=== PATIENT | male | born 1975 | race Caucasian/White ===

== ENCOUNTER → 2016-04-08 | Outpatient (CLI) | payer BC ==
[~2016-04-08] MED LIST: /ESOM40CA PO; ABIL15TA PO; ASPI325T OR; ASPI81TA4 PO; ATEN25TA OR; BENI20TA11; BENZ0.5T OR; BENZ0.5T PO; BENZ5TA PO; BUDE3CAP PO; DIOV320T PO; DULO20CA OR; METO50TA4 PO; NEUR100C OR; NITR4TASL SL; OMEP20TA7 OR; PANT40TA2 PO; PERC7.5T8 OR; PERCOCET PO; REME30TA OR; ROPI0.25 PO; SPIR25TA2 PO; TORS20TA2 PO; TRIC145T19 OR; VARE1TA OR; ZOCO40TA OR; [UNRECOGNIZED DRUG - OTHER] OR; plavix OR
--- NOTE | 2016-04-08 23:00 | REP ---
Clinical: Left hip mass. Technique: Real time castillo scale and color evaluation using linear high frequency transducer. Findings: Directed ultrasound examination overlying the area of maximal erythema and mass effect at the left hip demonstrates subcutaneous edema and small irregular avascular fluid collection measuring 18 x 4 x 12 mm. Impression: Subcutaneous edema with small irregular focal fluid collection which is otherwise nonspecific. Differential diagnosis may include phlegmon/forming abscess and small hematoma. Signed by Devang Meeks MD 04/08/2016 10:52 P
== END ==
LOC: M RAD 15:48
PROVIDERS: ATTEND Physician Assistant
DX: R60.0 Localized edema (principal)

== ENCOUNTER → 2016-04-26 | Outpatient (CLI) | payer BC ==
[2016-04-26 12:46] LABS: BASO % 0.3 % (0.0-1.0); EOS # 0.1 K/mm3 (0.0-0.50); EOS % 1.7 % (0.0-3.0); LARGE UNSTAINED CELL # 0.1 K/mm3 (0.0-0.4); LARGE UNSTAINED CELL % 1.7 % (0.0-4.0); LYMPH # 1.6 K/mm3 (1.5-4.5); LYMPH % 23.4 % (24.0-44.0); MEAN CORPUSCULAR HEMOGLOBIN 28.7 pg (27.0-33.0); MEAN CORPUSCULAR HGB CONC 33.1 g/dl (32.0-36.5); MEAN CORPUSCULAR VOLUME 86.5 fl (80.0-96.0); MONO # 0.4 K/mm3 (0.0-0.8); MONO % 6.5 % (0.0-5.0); NEUTROPHILS # 4.5 K/mm3 (1.8-7.7); NEUTROPHILS % 66.5 % (36.0-66.0); PLATELET COUNT, AUTOMATED 200 k/mm3 (150-450); RED CELL DISTRIBUTION WIDTH 13.7 % (11.5-14.5); WHITE BLOOD COUNT 6.7 K/mm3 (4.0-10.0)
== END ==
LOC: M LAB 12:01
PROVIDERS: ATTEND Internal Medicine
DX: K52.9 Noninfective gastroenteritis and colitis, unspecified (principal); R93.8 Abnormal findings on diagnostic imaging of other specified body structures

== ENCOUNTER → 2016-04-27 | Outpatient (REF) | payer BC | LOC: M LAB REF 15:28 | PROVIDERS: ATTEND Internal Medicine | DX: K52.9 Noninfective gastroenteritis and colitis, unspecified (principal); R93.8 Abnormal findings on diagnostic imaging of other specified body structures ==

== ENCOUNTER → 2016-07-12 | Outpatient (REF) | payer BC | LOC: M LAB REF 16:13 | PROVIDERS: ATTEND Internal Medicine | DX: R19.7 Diarrhea, unspecified (principal) ==

== ENCOUNTER → 2016-08-04 | Outpatient (CLI) | payer BC ==
[~2016-08-04] MED LIST changes: +ISOVUE-370 76% 100ML VIAL (Q9967) As Ordered ONE
--- NOTE | 2016-08-04 20:10 | REP ---
CT angiogram chest, 08/04/2016. Comparison CT 05/10/2014, CT angio chest 01/12/2014 Clinical history: Status post ascending aortic aneurysm repair. Please reassess. Helical scanning through the chest with bolus of 75 ml as of Isovue 370 and both coronal and sagittal thick slab MIP reformatting performed. The lung delgado show some underlying interstitial fibrotic changes and minor dependent atelectasis without effusion or acute infiltrate. Some subpleural fat noted bilaterally, but mild. No nodule, mass or acute infiltrate. Heart size borderline. There is no specific chamber enlargement, pericardial thickening or effusion. The main, right and left pulmonary arteries and the lobar arteries are without filling defects. The ascending aorta shows maximum AP diameter of 3.5 cm. The intramural hematoma seen on the 05/10/2014 study is entirely resolved, the lumen widely patent with no dissection. Preoperatively the aneurysm measured 5 cm in this region. At the arch there is a transverse diameter of 3.6 cm currently, which on the previous CT in this same level measured 3.1 cm. The posterior arch and descending aorta are normal. There is no stenosis. No pathologic sized mediastinal or hilar adenopathy. No axillary or supraclavicular masses. Sternotomy wires and healed sternotomy noted. Medial clavicles, ribs, scapulae and vertebral bodies grossly intact. In the upper abdomen, no visible hepatosplenomegaly, focal hepatic or splenic lesion nor intrahepatic biliary dilatation, calcified gallstone. There may be a few small stromal stones in the gallbladder. Pancreas intact. Adrenal glands normal. Upper poles kidneys without acute finding. The upper abdominal aorta is normal. Stomach with small hiatal hernia. No other findings upper abdomen. Impression: 1. Status post ascending thoracic aortic aneurysm repair with the maximum AP diameter of the ascending aorta 3.5 cm and at the anterior arch 3.6 cm, which is increased from 3.1 cm on 05/10/2014. The ascending aorta is without dissection and shows no luminal stenosis. The previous intramural hematoma on the May 2014 exam is resolved. No other new or significant findings. No central or lobar pulmonary artery thrombi. Signed by Carter Francis MD 08/04/2016 08:42 P
== END ==
LOC: M RAD 07:46
PROVIDERS: ATTEND Internal Medicine Interventional Cardiology
DX: I71.2 Thoracic aortic aneurysm, without rupture (principal)
CPT/HCPCS: 71275; Q9967

== ENCOUNTER → 2016-09-10 | Outpatient (REF) | payer BC ==
[~2016-09-10] MED LIST changes: -ISOVUE-370 76% 100ML VIAL (Q9967) As Ordered ONE
== END ==
LOC: M LAB REF 09:40
PROVIDERS: ATTEND Internal Medicine
DX: R19.7 Diarrhea, unspecified (principal)

== ENCOUNTER 2016-10-10 23:39 | Emergency (ER) | payer BC ==
[~2016-10-10] VITALS: Ht 182.9 cm; Wt 154.8 kg
[2016-10-11] MEDS ORDERED: VITA-110 PO (00:13)
[2016-10-11] MEDS ORDERED: RIBO100C PO (00:13)
[2016-10-11] MEDS ORDERED: LATU40TA (00:13)
[2016-10-11] MEDS ORDERED: FAMO1TAB11 (00:13)
[2016-10-11] MEDS ORDERED: MAGN1TAB25 PO (00:13)
[2016-10-11] MEDS ORDERED: ZONI100C2 (00:13)
[2016-10-11] MEDS ORDERED: IBUP-1022 PO (00:13)
[2016-10-11] MEDS ORDERED: LOSA25TA8 (00:13)
[2016-10-11] MEDS ORDERED: FLOM5CAP (00:13)
[2016-10-11] MEDS ORDERED: ZOLO50TA PO (00:13)
[2016-10-11] MEDS ORDERED: ROPI1TAB (00:13)
[2016-10-11] MEDS ORDERED: VERA40TA (00:13)
[2016-10-11] MEDS ORDERED: REQU1TAB16 PO (00:13)
[2016-10-11] MEDS ORDERED: BENA25TA10 PO (00:13)
[2016-10-11] MEDS ORDERED: METO1TAB7 (00:13)
[2016-10-11] MEDS ORDERED: BOTO10VL IM ×2 (00:13→18:44)
[2016-10-11] MEDS ORDERED: LEVO137T2 (00:13)
[2016-10-11] MEDS ORDERED: HYDR200T3 (00:13)
[2016-10-11] MEDS ORDERED: TRAZ50TA11 (00:13)
[2016-10-11] MEDS ORDERED: FURO20TA2 PO ×2 (00:13→18:49)
[2016-10-11] MEDS ORDERED: PANT40TA2 (00:13)
[2016-10-11] MEDS ORDERED: dexameTHASONE 20 MG/5 ML VIAL (J1100) IV ONE (01:15)
[2016-10-11] MEDS ORDERED: KETOROLAC 30 MG/ML VIAL (J1885) IV ONE (01:15)
[2016-10-11] MEDS ORDERED: METOCLOPRAMIDE INJ 10MG/2ML VIAL (J2765) IV ONE (01:15)
[2016-10-11] MEDS ORDERED: diphenhydrAMINE INJ 50MG/ML VIAL (J1200) IV STA (02:13)
[2016-10-11] MEDS ORDERED: HYDROmorphone HCL 1 MG/ML SYRINGE (J1170) IV ONE ×2 (02:15→03:00)
[2016-10-11 03:06] VITALS: BP 154/94
[2016-10-11] MEDS ORDERED: FAMO1TAB11 PO (18:44)
[2016-10-11] MEDS ORDERED: METO1TAB7 PO (18:44)
[2016-10-11] MEDS ORDERED: ZOCO40TA PO (18:44)
[2016-10-11] MEDS ORDERED: ROPI1TAB PO ×2 (18:49→18:50)
[2016-10-11] MEDS ORDERED: K-TA10TA2 PO (18:49)
[2016-10-11] MEDS ORDERED: TRAZ50TA11 PO (18:49)
[2016-10-11] MEDS ORDERED: TRAM50TA2 PO (18:49)
[2016-10-11] MEDS ORDERED: BUTA-198 PO (18:49)
[2016-10-11] MEDS ORDERED: PRED5TA PO (18:49)
[2016-10-11] MEDS ORDERED: VERA40TA PO (18:49)
[2016-10-11] MEDS ORDERED: PROT1TAB2 PO (18:49)
[2016-10-11] MEDS ORDERED: ASPI1TAB PO (18:49)
[2016-10-11] MEDS ORDERED: SYNT137T7 PO (18:49)
[2016-10-11] MEDS ORDERED: LATU40TA PO (18:49)
[2016-10-11] MEDS ORDERED: ZONI100C2 PO (18:49)
[2016-10-11] MEDS ORDERED: SERT50TA PO (18:49)
[2016-10-11] MEDS ORDERED: HYDR200T3 PO (18:49)
[2016-10-11] MEDS ORDERED: LOSA25TA8 PO (18:49)
[2016-10-11] MEDS ORDERED: MAG400TA PO (18:50)
[2016-10-11] MEDS ORDERED: VITA-122 PO (18:50)
== END 2016-10-11 03:21 | disposition home or self-care (01) ==
LOC: M ED 23:39
DX: G43.709 Chronic migraine without aura, not intractable, without status migrainosus (principal); I10 Essential (primary) hypertension; E78.4 Other hyperlipidemia; F32.9 Major depressive disorder, single episode, unspecified
CPT/HCPCS: 85652; 96374; 96375; 96376; 99283; J1100; J1170; J1200; J1885; J2765

== ENCOUNTER 2016-10-11 13:25 | Inpatient (IN) | payer BC ==
[~2016-10-11] VITALS: Ht 182.9 cm; Wt 154.5 kg
[~2016-10-11 13:25] MED LIST changes: +BENA25TA10 PO; +BOTO10VL IM; +FAMO1TAB11; +FLOM5CAP; +FURO20TA2 PO; +HYDR200T3; +HYDROXYCHLOROQUINE 200 MG TAB PO SCH; +IBUP-1022 PO; +LATU40TA; +LEVO137T2; +LOSA25TA8; +LURASIDONE HCL 40 MG TAB (LATUDA) PO SCH; +MAGN1TAB25 PO; +METO1TAB7; +METOPROLOL SUCC (TopROL XL) 50MG **XL** TAB PO SCH; +PANT40TA2; +PANTOPRAZOLE 40MG TAB (PROTONIX) PO SCH; +REQU1TAB16 PO; +RIBO100C PO; +ROPI1TAB; +TRAZ50TA11; +VERA40TA; +VITA-110 PO; +ZOLO50TA PO; +ZONI100C2
[2016-10-11] MEDS ORDERED: methylPREDNISolone INJ 125 MG/2 ML VIAL (J2930) IV ONE (14:45)
[2016-10-11] MEDS ORDERED: TRIMETHOBENZAMIDE HCL INJ 200 MG/2 ML VIAL (J3250) IM ONE (14:45)
[2016-10-11] MEDS ORDERED: NS 1,000 ML IV ONE (14:45)
[2016-10-11] MEDS ORDERED: diphenhydrAMINE INJ 50MG/ML VIAL (J1200) IV ONE (14:45)
[2016-10-11] MEDS ORDERED: KETOROLAC 30 MG/ML VIAL (J1885) IV ONE (14:45)
[2016-10-11] MEDS ORDERED: MORPHINE 4 MG/ML 1ML SYRINGE IV ONE (16:15)
[2016-10-11] MEDS ORDERED: METO1TAB7 PO (18:44)
[2016-10-11] MEDS ORDERED: ZOCO40TA PO (18:44)
[2016-10-11] MEDS ORDERED: FAMO1TAB11 PO (18:44)
[2016-10-11] MEDS ORDERED: BOTO10VL IM (18:44)
[2016-10-11] MEDS ORDERED: BUTA-198 PO (18:49)
[2016-10-11] MEDS ORDERED: LOSA25TA8 PO (18:49)
[2016-10-11] MEDS ORDERED: K-TA10TA2 PO (18:49)
[2016-10-11] MEDS ORDERED: ASPI1TAB PO (18:49)
[2016-10-11] MEDS ORDERED: SYNT137T7 PO (18:49)
[2016-10-11] MEDS ORDERED: ZONI100C2 PO (18:49)
[2016-10-11] MEDS ORDERED: VERA40TA PO (18:49)
[2016-10-11] MEDS ORDERED: PRED5TA PO (18:49)
[2016-10-11] MEDS ORDERED: PROT1TAB2 PO (18:49)
[2016-10-11] MEDS ORDERED: TRAM50TA2 PO (18:49)
[2016-10-11] MEDS ORDERED: LATU40TA PO (18:49)
[2016-10-11] MEDS ORDERED: ROPI1TAB PO ×2 (18:49→18:50)
[2016-10-11] MEDS ORDERED: SERT50TA PO (18:49)
[2016-10-11] MEDS ORDERED: HYDR200T3 PO (18:49)
[2016-10-11] MEDS ORDERED: FURO20TA2 PO (18:49)
[2016-10-11] MEDS ORDERED: TRAZ50TA11 PO (18:49)
[2016-10-11] MEDS ORDERED: VITA-122 PO (18:50)
[2016-10-11] MEDS ORDERED: MAG400TA PO (18:50)
[2016-10-11] MEDS ORDERED: KETOROLAC 30 MG/ML VIAL (J1885) IV SCH (19:00)
[2016-10-11] MEDS ORDERED: BISACODYL 5 MG TAB PO PRN (19:30)
[2016-10-11] MEDS ORDERED: traMADol 50 MG TAB PO SCH (19:30)
[2016-10-11] MEDS ORDERED: ONDANSETRON 4MG/2ML VIAL (J2405) IV PRN (19:30)
--- NOTE | 2016-10-11 20:05 | REP ---
Clinical: Acute headache . Comparison: 11/14/2015 . Findings: The ventricles, sulci, and cisterns are normal in position and appearance. Marmolejo-white differentiation is maintained. No acute intracranial hemorrhage, mass/mass effect, pathology or trauma/injury. No evidence for acute infarction. No extra-axial fluid collection. Calvarium is intact. Paranasal sinuses and mastoid air cells are clear. Impression: Normal noncontrast head CT. No evidence for acute intracranial pathology or trauma/injury. Signed by Devang Meeks MD 10/11/2016 07:57 P
[2016-10-11 20:08] VITALS: BP 119/68
[2016-10-11] MEDS ORDERED: VALPROATE SOD INJ 1,000 MG in D5W 50 ML IV ONE (20:30)
[2016-10-11] MEDS ORDERED: rOPINIRole 1MG TAB PO SCH (21:00)
[2016-10-11] MEDS ORDERED: traZODone 50 MG TAB PO SCH (21:00)
[2016-10-11] MEDS ORDERED: predniSONE 5 MG TAB PO SCH (21:00)
[2016-10-11] MEDS ORDERED: LURASIDONE HCL 40 MG TAB (LATUDA) PO SCH (21:00)
[2016-10-11] MEDS ORDERED: VERAPAMIL 40 MG TAB PO SCH (21:00)
[2016-10-11] MEDS ORDERED: PANTOPRAZOLE 40MG TAB (PROTONIX) PO SCH (21:00)
[2016-10-11] MEDS ORDERED: METOPROLOL SUCC (TopROL XL) 50MG **XL** TAB PO SCH (21:00)
[2016-10-11] MEDS ORDERED: ZONISAMIDE 100 MG CAP (ZONEGRAN) PO SCH (21:00)
[2016-10-11] MEDS ORDERED: FUROSEMIDE 20 MG TAB PO SCH (21:00)
[2016-10-11] MEDS ORDERED: HYDROXYCHLOROQUINE 200 MG TAB PO SCH (21:00)
[2016-10-11] MEDS ORDERED: SIMVASTATIN 40 MG TAB PO SCH (21:00)
[2016-10-11] MEDS: traMADol 50 MG TAB PO SCH (21:21)
[2016-10-11 22:00] VITALS: BP 118/58
[2016-10-11] MEDS: rOPINIRole 1MG TAB PO SCH (22:15)
[2016-10-11] MEDS: traZODone 50 MG TAB PO SCH (22:16)
[2016-10-11] MEDS: predniSONE 5 MG TAB PO SCH (22:16)
[2016-10-11] MEDS: PANTOPRAZOLE 40MG TAB (PROTONIX) PO SCH (22:17)
[2016-10-11] MEDS: HYDROXYCHLOROQUINE 200 MG TAB PO SCH (22:17)
[2016-10-11] MEDS: FUROSEMIDE 20 MG TAB PO SCH (22:17)
[2016-10-11] MEDS: SIMVASTATIN 40 MG TAB PO SCH (22:17)
[2016-10-11] MEDS: LURASIDONE HCL 40 MG TAB (LATUDA) PO SCH (22:18)
[2016-10-11] MEDS: ZONISAMIDE 100 MG CAP (ZONEGRAN) PO SCH (22:19)
[2016-10-11] MEDS: HEPARIN SOD (PORCINE) 5000 UNITS/ML VIAL SC SCH (22:20)
[2016-10-11] MEDS: VERAPAMIL 40 MG TAB PO SCH (22:40)
[2016-10-11] MEDS: METOPROLOL SUCC (TopROL XL) 50MG **XL** TAB PO SCH (22:41)
[2016-10-11] MEDS: KETOROLAC 30 MG/ML VIAL (J1885) IV SCH (23:40)
[2016-10-11] MEDS: METOCLOPRAMIDE INJ 10MG/2ML VIAL (J2765) IV SCH (23:41)
[2016-10-12] MEDS: FIORICET TAB PO PRN ×2 (04:33→12:03)
[2016-10-12 06:00] VITALS: BP 119/61
[2016-10-12] MEDS ORDERED: LEVOTHYROXINE 137MCG TABLET (0.137MG) PO SCH (06:00)
[2016-10-12] MEDS: HEPARIN SOD (PORCINE) 5000 UNITS/ML VIAL SC SCH ×3 (06:25→21:12)
[2016-10-12] MEDS: LEVOTHYROXINE 137MCG TABLET (0.137MG) PO SCH (06:25)
[2016-10-12 07:46] LABS: EOS # 0.1 K/mm3 (0.0-0.50); EOS % 1.1 % (0.0-3.0); LARGE UNSTAINED CELL # 0.1 K/mm3 (0.0-0.4); LARGE UNSTAINED CELL % 0.4 % (0.0-4.0); LYMPH # 0.9 K/mm3 (1.5-4.5); LYMPH % 6.9 % (24.0-44.0); MEAN CORPUSCULAR HEMOGLOBIN 29.4 pg (27.0-33.0); MEAN CORPUSCULAR HGB CONC 33.7 g/dl (32.0-36.5); MEAN CORPUSCULAR VOLUME 87.2 fl (80.0-96.0); MONO # 0.6 K/mm3 (0.0-0.8); MONO % 4.6 % (0.0-5.0); NEUTROPHILS # 10.4 K/mm3 (1.8-7.7); NEUTROPHILS % 86.9 % (36.0-66.0); PLATELET COUNT, AUTOMATED 214 k/mm3 (150-450); RED CELL DISTRIBUTION WIDTH 13.9 % (11.5-14.5)
[2016-10-12 08:12] LABS: ALBUMIN 3.4 GM/DL (3.2-5.2); ALBUMIN/GLOBULIN RATIO 1.03 (1.00-1.93); ALKALINE PHOSPHATASE 86 U/L (45-117); ALT/SGPT 26 U/L (12-78); ANION GAP 10 MEQ/L (8-16); AST/SGOT 10 U/L (15-37); BILIRUBIN,TOTAL 0.6 MG/DL (0.2-1.0); BLOOD UREA NITROGEN 20 MG/DL (7-18); CALCIUM LEVEL 8.9 MG/DL (8.5-10.1); CARBON DIOXIDE LEVEL 22 MEQ/L (21-32); CHLORIDE LEVEL 105 MEQ/L (98-107); CREATININE FOR GFR 1.09 MG/DL (0.70-1.30); GLOMERULAR FILTRATION RATE > 60.0 (>60); GLUCOSE, FASTING 125 MG/DL (70-105); MAGNESIUM LEVEL 2.4 MG/DL (1.8-2.4); POTASSIUM SERUM 3.8 MEQ/L (3.5-5.1); SODIUM LEVEL 137 MEQ/L (136-145); TOTAL PROTEIN 6.7 GM/DL (6.4-8.2)
[2016-10-12] MEDS: SERTRALINE HCL 50 MG TAB PO SCH (08:16)
[2016-10-12] MEDS: POTASSIUM CHLORIDE 10 MEQ SR TABLET PO SCH (08:16)
[2016-10-12] MEDS: VITAMIN D 1,000 INTERNATIONAL UNITS TABLET PO SCH (08:16)
[2016-10-12] MEDS: PANTOPRAZOLE 40MG TAB (PROTONIX) PO SCH ×2 (08:17→21:12)
[2016-10-12] MEDS: HYDROXYCHLOROQUINE 200 MG TAB PO SCH ×2 (08:17→21:11)
[2016-10-12] MEDS: MAGNESIUM OXIDE 400 MG TAB (MAG-OX) PO SCH (08:18)
[2016-10-12] MEDS: traMADol 50 MG TAB PO SCH ×2 (08:18→21:11)
[2016-10-12] MEDS: ASPIRIN 81 MG ENTERIC TAB PO SCH (08:19)
[2016-10-12] MEDS: rOPINIRole 1MG TAB PO SCH ×2 (08:19→21:12)
[2016-10-12] MEDS: FAMOTIDINE 20 MG TAB PO SCH (08:19)
[2016-10-12] MEDS: LOSARTAN 25 MG TAB PO SCH (08:20)
[2016-10-12] MEDS: METOCLOPRAMIDE INJ 10MG/2ML VIAL (J2765) IV SCH ×2 (08:21→16:58)
[2016-10-12] MEDS: predniSONE 5 MG TAB PO SCH ×2 (08:21→18:25)
[2016-10-12] MEDS: FUROSEMIDE 20 MG TAB PO SCH ×2 (08:21→18:25)
[2016-10-12] MEDS: KETOROLAC 30 MG/ML VIAL (J1885) IV SCH ×2 (08:22→17:00)
[2016-10-12] MEDS: VERAPAMIL 40 MG TAB PO SCH ×2 (08:46→20:32)
[2016-10-12] MEDS ORDERED: FAMOTIDINE 20 MG TAB PO SCH (09:00)
[2016-10-12] MEDS ORDERED: LOSARTAN 25 MG TAB PO SCH (09:00)
[2016-10-12] MEDS ORDERED: VITAMIN D 1,000 INTERNATIONAL UNITS TABLET PO SCH (09:00)
[2016-10-12] MEDS ORDERED: MAGNESIUM OXIDE 400 MG TAB (MAG-OX) PO SCH (09:00)
[2016-10-12] MEDS ORDERED: SERTRALINE HCL 50 MG TAB PO SCH (09:00)
[2016-10-12] MEDS ORDERED: ASPIRIN 81 MG ENTERIC TAB PO SCH (09:00)
[2016-10-12] MEDS ORDERED: POTASSIUM CHLORIDE 10 MEQ SR TABLET PO SCH (09:00)
[2016-10-12] MEDS ORDERED: rOPINIRole 1MG TAB PO SCH (09:00)
[2016-10-12] MEDS: LORazepam 2 MG/ML VIAL (J2060) IV PRN ×2 (09:54→16:57)
--- NOTE | 2016-10-12 10:32 | HPE ---
DATE OF ADMISSION: 10/11/2016 PRIMARY CARE PHYSICIAN: Dr. Peoples CLAY MAKER: Dr. Del Rio NEUROLOGIST: Dr. Cordova CHIEF COMPLAINT: Severe headache. HISTORY OF PRESENT ILLNESS: Mr. Beaver is a 40-year-old male with multiple past medical history who presented to the ER due to experiencing severe headache. The patient expressed that on Thursday morning the patient was seen by Dr. Cordova who gave him a Botox shot for migraines. The patient expressed that he is receiving Botox shots every three months and this is his third Botox injection. The patient expressed that after injection in the afternoon he started having headache. Therefore, the patient came to the ER last night. In the ER, the patient received 0.5 mg of Dilaudid, Benadryl 25 mg IV, Decadron 15 mg IV, Toradol 30 mg IV and Reglan 10 mg IV, however, the patient expressed that these medications did not help as much with the pain. The patient was discharged home. When the patient got home, he called Dr. Cordova who sent a prescription for Fioricet which he picked up in the morning, however, it did not help him, and therefore the patient came to the ER. The patient expressed that in September had one episode of stroke like presentation where he transferred to a stroke center at [facility]. They performed different tests and they gave him tPA due to the possibility of stroke, however, workup indicated that the patient has complex migraines and was discharged home. The patient expressed that after that he started noticing that he has weakness and numbness in both right side of the face and right upper and lower extremities. The patient expressed that his migraines and his symptoms started about a year ago when he was seen at [facility]. The patient denies seizure type activities, losing consciousness, however, the patient expressed that he has photophobia during his episode of migraines. The patient denies acute vision or hearing changes. The patient also denies abdominal pain, however, the patient has vomiting and nausea. The patient had two episodes of vomiting and he is nauseated. The patient denies diarrhea or constipation, hematochezia or hematuria. The patient also denies bruises. ALLERGIES: 1. Dihydroergotamine. 2. Hydrocodone. 3. Oxycodone. 4. Promethazine. 5. Propoxyphene. 6. Topiramate. HOME MEDICATIONS: - aspirin 81 mg by mouth daily - Botox - Fioricet one tablet as needed migraines - vitamin D3 1000 mg by mouth daily - famotidine 20 mg by mouth daily - furosemide 20 mg by mouth twice a day - hydroxychloroquine 200 mg by mouth twice a day - Synthroid 137 mcg by mouth every morning - losartan 25 mg by mouth daily - Latuda 40 mg by mouth at bedtime - magnesium oxide 400 mg by mouth daily - metoprolol succinate 50 mg by mouth at bedtime - Protonix 40 mg by mouth twice a day - potassium chloride 10 mEq by mouth daily - prednisone 10 mg by mouth twice a day - ropinirole hydrochloride 1 mg by mouth at bedtime - ropinirole HCL 0.5 mg by mouth daily - sertraline 50 mg by mouth daily - Zocor 40 mg by mouth at bedtime - tramadol 50 mg by mouth every 12 hours - trazodone 150 mg by mouth at bedtime - verapamil 60 mg by mouth twice a day - zonisamide 100 mg by mouth at bedtime PAST MEDICAL HISTORY: 1. History of chest pain, myocardial infarction ruled out and pulmonary embolism ruled out. 2. Fluid overload with chronic lower extremity edema. 3. History of gastroesophageal reflux disease (GERD). 4. Morbidly obese. 5. Hyperlipidemia. 6. Hypertension. 7. Incidental finding of 4.2 cm ascending aortic aneurysm on CT of the chest. 8. Migraines. PAST SURGICAL HISTORY: 1. Repair of the aortic aneurysm. 2. Back surgery on L4/L5 and S2. REVIEW OF SYSTEMS: GENERAL: Patient denies fever, chills, night sweats, weight loss, weight gain. HEENT: Patient has headache, lightheadedness and dizziness. Patient denies acute vision or hearing changes. The patient denies problem with chewing food or sinusitis. However, the patient expressed that he has been having loss of appetite. NECK: Patient has no lumps, bumps, or decreased range of motion of his neck HEART: Patient denies palpitations, racing or skipping heartburn, no chest pain. LUNGS: Patient denies shortness of breath, coughing or wheezing. ABDOMEN: Patient is nauseated and had two episodes of vomiting, mostly of digested food. The patient denies diarrhea, melena, hematochezia, hemoptysis. NEURO: Patient has complex migraines, however, the patient denies a history of seizures, TIA or stroke. PHYSICAL EXAMINATION: VITAL SIGNS: Temperature 97.6, pulse 56, respiratory rate 18, blood pressure 109/58, pulse oximetry 94% on room air. GENERAL APPEARANCE: The patient was lying in bed in no acute distress. The patient was awake, alert and oriented to time, place and person. HEENT: Normocephalic, atraumatic. Pupils are equally reactive to light. Oral mucosa is moist. NECK: Soft, supple. No lymphadenopathy. No thyromegaly. JVD cannot be obtained due to extended neck. HEART: Regular rate and rhythm. Normal S1 and S2. LUNGS: Distant lung sounds due to obesity. Good air movement. EXTREMITIES: Patient has mild pitting edema in both lower extremity and normal range of motion in both upper and lower extremities. The patient has weakness in both right upper and lower extremities compared to left (4/5). NEURO: Cranial nerves II through XII was intact. However, the patient has decreased sensation on the right side of the face compared to the left. The patient also has decreased strength on the right upper and lower extremity compared to the left as well as sensation in both upper and lower extremities compared to the left upper and lower extremities. ABDOMEN: Positive bowel sounds in all quadrants. No tenderness to palpation. LABORATORY DATA: Has not been obtained. CT of the head shows a normal noncontrast head CT. No evidence of acute intracranial pathology or trauma/injury. ASSESSMENT/PLAN: 1. Hemiplegic migraine. Due to other possibilities, we ordered a CT of the head, which was negative for any pathology. At the ER, the patient has received dexamethasone 15 mg as well as ketorolac 30 mg IV. The patient also received metoclopramide 10 mg, hydromorphone, diphenhydramine as well as another hydromorphone HCL 0.5 mg, however, the patient continued to have headache. Patient is admitted and will be sent to PCU. I have spoken with Dr. Cordova and I have started the patient on Toradol 15 mg every 8 hours and Ativan 2 mg every 4 hours as needed for severe headache. Also based on recommendation from Dr. Cordova, I gave one dose of Depakene [address] Cordova suggested that if it does not work we can go ahead and give magnesium sulfate 1000 mg, also we can given Reglan around the clock. We have consulted Dr. Cordova and Dr. Cordova will see the patient tomorrow. At this time, the patient is stable. Due to the photophobia, the patient prefers low light in the room secondary to migraines. We will continue to monitor the patient for any abnormal symptoms. Also will continue the patient on his home medications. 2. Hyperlipidemia. Patient on Zocor 40 mg by mouth at bedtime. 3. Deep vein thrombosis (DVT) prophylaxis. We will continue the patient on heparin. 4. Hypertension. Patient is on metoprolol succinate 50 mg by mouth at bedtime and Lasix. 5. Vitamin D deficiency. The patient is on vitamin D 1000 unit status postoperative daily. 6. Depression. Patient is on Zoloft. My preceptor for this patient encounter was Dr. Carmen Uriostegui. The preceptor was physically present in the building during the encounter and was fully available. As needed, all aspects of the patient interview, examination, medical decision making process, and medical care plan development were reviewed and approved by the preceptor. The preceptor is aware and concurs with the plan as stated in the body of this note and will attest to such by his/her cosignature. I have seen and examined the patient, and discussed the case with the resident. I agree with the following assessment mentioned above. VERENICE
--- NOTE | 2016-10-12 12:49 | IPNPDOC ---
Text Note Date of Service The patient was seen on 10/12/16. NOTE Subjective: Patient is a 40 year old male with a PMHx of HTN, DLP, Migraine headaches, Ascending Aortic aneurysm (4.2cm on CT chest), Morbid obesity, Chronic LE edema and GERD who presented to the ER with complaints of a severe headache. Patient has noted that a while back ago he had a symptoms of a stroke and was evaluated in [place]. They determined that his symptoms were secondary to a complicated migraine, however after that point they had discontinued his triptan based medications. Since that point he has been receiving Botox injections for his headache. He has received three overall, the first two were without incident. However the most recent one completed on Thursday10/10/[address] Cordova. A day after he has been experiencing excruciating headache. The patient has been admitted for an intractable headache and has been evaluated by neurology. Patient was seen and examined at the bedside. He notes that his headache has not improved significantly. Objective: Vitals (See below) General: Lying in bed, no acute distress, comfortable, AAOx3 HEENT: NC, AT CVS: RRR, +S1S2 Lungs: Fair air entry b/l, -w/r/r Abdomen: Soft, ND, NT, +BSx4 Extremities: +PPx4, - Edema, - Calf tenderness Assessment and plan: 1. Intractable headache - likely 2/2 hemiplegic migraine headache - Presented with severe headache 1 day after receiving Botox injection - Physical without any focal deficits - CT head 10/11: no evidence of acute intracranial pathology - s/p Dexamethasone 15mg, Ketorolac 30mg IV, Metoclopramide 10mg, Hydromorphone and Diphenhydramine in ER - Neurology (Dr. Cordova) consulted; will continue with their recommendations - c/w Ketorolac 50mg IV q8H, Metoclopramide 5mg IV, Ativan 2mg IV q4H - s/p Steroid loading, c/w Prednisone and will taper 2. Leukocytosis - likely 2/2 corticosteroids 3. DLP - c/w ASA and Simvastatin 4. HTN - c/w Metoprolol succinate 50 BID, Lasartan 25, Furosemide 20 BID 5. Vitamin D deficiency - c/w Vitamin D supplementation 6. Depression - c/w Sertraline 7. GERD - c/w Protonix and Famotidine 8. DVT prophylaxis - c/w Heparin VS,Fishbone, I+O VS, Fishbone, I+O Laboratory Tests 10/12/16 07:32 Red Blood Count 5.05, Mean Corpuscular Volume 87.2, Mean Corpuscular Hemoglobin 29.4, Mean Corpuscular Hemoglobin Concent 33.7, Red Cell Distribution Width 13.9 , Neutrophils (%) (Auto) 86.9 H, Lymphocytes (%) (Auto) 6.9 L, Monocytes (%) ( Auto) 4.6, Eosinophils (%) (Auto) 1.1, Basophils (%) (Auto) 0.0, Neutrophils # ( Auto) 10.4 H, Lymphocytes # (Auto) 0.9 L, Monocytes # (Auto) 0.6, Eosinophils # (Auto) 0.1, Basophils # (Auto) 0.0, Calcium Level 8.9, Aspartate Amino Transf ( AST/SGOT) 10 L, Alanine Aminotransferase (ALT/SGPT) 26, Alkaline Phosphatase 86 , Total Bilirubin 0.6, Total Protein 6.7, Albumin 3.4 Vital Signs Date Time Temp Pulse Resp B/P (MAP) Pulse Ox O2 Delivery O2 Flow Rate FiO2 10/12/16 12:03 22 Room Air 10/12/16 08:46 77 135/63 10/12/16 06:00 98.3 96 I&O- Last 24 Hours up to 6 AM 10/12/16 05:59 Intake Total 1480 ml Output Total 300 ml Balance 1180 ml BRENDAN SALAZAR MD Oct 12, 2016 12:49
[2016-10-12 14:00] VITALS: BP 119/67
[2016-10-12] MEDS ORDERED: MAG SULF 1GM/100ML (MAG RUN) 1 GM in APPROPRIATE DILUENT 1 EA IV ONE (14:00)
[2016-10-12] MEDS: HYDROmorphone 2 MG TAB PO PRN ×2 (14:48→22:45)
[2016-10-12 17:18] VITALS: BP 96/50
[2016-10-12] MEDS: METOPROLOL SUCC (TopROL XL) 50MG **XL** TAB PO SCH (20:32)
[2016-10-12] MEDS: LURASIDONE HCL 40 MG TAB (LATUDA) PO SCH (21:12)
[2016-10-12] MEDS: ZONISAMIDE 100 MG CAP (ZONEGRAN) PO SCH (21:12)
[2016-10-12] MEDS: traZODone 50 MG TAB PO SCH (21:12)
[2016-10-12] MEDS: SIMVASTATIN 40 MG TAB PO SCH (21:12)
[2016-10-12 22:00] VITALS: BP 124/61
[2016-10-13] VITALS (10 sets, daily range): BP systolic 118–155; BP diastolic 64–91
[2016-10-13] MEDS: LEVOTHYROXINE 137MCG TABLET (0.137MG) PO SCH (06:04)
[2016-10-13] MEDS: HYDROmorphone 2 MG TAB PO PRN (06:05)
[2016-10-13] MEDS: HEPARIN SOD (PORCINE) 5000 UNITS/ML VIAL SC SCH ×3 (06:05→21:47)
[2016-10-13 06:09] LABS: BASO % 0.1 % (0.0-1.0); EOS % 0.2 % (0.0-3.0); LARGE UNSTAINED CELL # 0.1 K/mm3 (0.0-0.4); LARGE UNSTAINED CELL % 1.6 % (0.0-4.0); LYMPH # 1.6 K/mm3 (1.5-4.5); LYMPH % 17.3 % (24.0-44.0); MEAN CORPUSCULAR HEMOGLOBIN 29.1 pg (27.0-33.0); MEAN CORPUSCULAR HGB CONC 32.7 g/dl (32.0-36.5); MEAN CORPUSCULAR VOLUME 89.3 fl (80.0-96.0); MONO # 0.5 K/mm3 (0.0-0.8); MONO % 6.2 % (0.0-5.0); NEUTROPHILS # 6.3 K/mm3 (1.8-7.7); NEUTROPHILS % 74.6 % (36.0-66.0); PLATELET COUNT, AUTOMATED 194 k/mm3 (150-450); RED CELL DISTRIBUTION WIDTH 14.2 % (11.5-14.5); WHITE BLOOD COUNT 8.5 K/mm3 (4.0-10.0)
[2016-10-13 06:28] LABS: ALBUMIN 2.9 GM/DL (3.2-5.2); ALBUMIN/GLOBULIN RATIO 1.07 (1.00-1.93); ALKALINE PHOSPHATASE 67 U/L (45-117); ALT/SGPT 21 U/L (12-78); ANION GAP 4 MEQ/L (8-16); AST/SGOT 8 U/L (15-37); BILIRUBIN,TOTAL 0.4 MG/DL (0.2-1.0); BLOOD UREA NITROGEN 20 MG/DL (7-18); CALCIUM LEVEL 8.3 MG/DL (8.5-10.1); CARBON DIOXIDE LEVEL 29 MEQ/L (21-32); CHLORIDE LEVEL 106 MEQ/L (98-107); CREATININE FOR GFR 1.11 MG/DL (0.70-1.30); GLOMERULAR FILTRATION RATE > 60.0 (>60); GLUCOSE, FASTING 94 MG/DL (70-105); MAGNESIUM LEVEL 2.5 MG/DL (1.8-2.4); POTASSIUM SERUM 4.1 MEQ/L (3.5-5.1); SODIUM LEVEL 139 MEQ/L (136-145); TOTAL PROTEIN 5.6 GM/DL (6.4-8.2)
[2016-10-13] MEDS: LORazepam 2 MG/ML VIAL (J2060) IV PRN (06:49)
[2016-10-13] MEDS: KETOROLAC 30 MG/ML VIAL (J1885) IV PRN ×2 (07:53→18:47)
[2016-10-13] MEDS ORDERED: NALOXONE INJ 0.4 MG/1 ML VIAL (J2310) IV STA (08:14)
[2016-10-13] MEDS ORDERED: NALOXONE INJ 0.4 MG/1 ML VIAL (J2310) As Ordered ONE (08:16)
[2016-10-13] MEDS: traMADol 50 MG TAB PO SCH ×2 (09:00→21:49)
--- NOTE | 2016-10-13 09:02 | REP ---
CT Head without contrast HISTORY: Lethargy COMPARISON: 10/11/2016 There is no intraparenchymal hemorrhage, acute infarct, mass or midline shift. The ventricular system is normal in appearance. There is no extra cerebral collection. There is no fracture. The visualized sinuses are clear. IMPRESSION: There is no intracranial lesion. Signed by Power Santoyo MD 10/13/2016 08:54 A
[2016-10-13] MEDS: predniSONE 5 MG TAB PO SCH ×2 (10:41→18:51)
[2016-10-13] MEDS: VITAMIN D 1,000 INTERNATIONAL UNITS TABLET PO SCH (10:42)
[2016-10-13] MEDS: FAMOTIDINE 20 MG TAB PO SCH (10:43)
[2016-10-13] MEDS: POTASSIUM CHLORIDE 10 MEQ SR TABLET PO SCH (10:44)
[2016-10-13] MEDS: FUROSEMIDE 20 MG TAB PO SCH ×2 (10:45→18:51)
[2016-10-13] MEDS: LOSARTAN 25 MG TAB PO SCH (10:46)
[2016-10-13] MEDS: ASPIRIN 81 MG ENTERIC TAB PO SCH (10:46)
[2016-10-13] MEDS: MAGNESIUM OXIDE 400 MG TAB (MAG-OX) PO SCH (10:48)
[2016-10-13] MEDS: SERTRALINE HCL 50 MG TAB PO SCH (10:49)
[2016-10-13] MEDS ORDERED: HYDROmorphone 2 MG TAB PO PRN (11:15)
[2016-10-13] MEDS: VERAPAMIL 40 MG TAB PO SCH ×2 (11:50→21:48)
[2016-10-13] MEDS: rOPINIRole 1MG TAB PO SCH ×2 (11:52→21:49)
[2016-10-13] MEDS: HYDROXYCHLOROQUINE 200 MG TAB PO SCH ×2 (11:52→21:49)
[2016-10-13] MEDS: PANTOPRAZOLE 40MG TAB (PROTONIX) PO SCH ×2 (12:00→21:49)
[2016-10-13] MEDS ORDERED: traMADol 50 MG TAB PO ONE (12:45)
--- NOTE | 2016-10-13 15:03 | ECGEPIP ---
Stationary ECG Study [facility] Test Date: 2016-10-13 Pat Name: ROSELYN GALINDO Department: Room: [place] [address] Gender: M Tax Expert: ISAURA : [id number] Requested By: BRENDAN SALAZAR Order Number: [id number] Reading MD: Doroteo Gabriel Measurements Intervals [place] Rate: 65 P: 66 [place]: 178 QRS: 9 QRSD: 109 T: 28 QT: 417 QTc: 435 Interpretive Statements SINUS RHYTHM POSSIBLE RIGHT VENTRICULAR CONDUCTION DELAY Low precordial voltages, poor R-wave progression. Electronically Signed On 10-13-2016 15:03:02 EDT by Doroteo Gabriel
[2016-10-13] MEDS ORDERED: SLF 3 ML SYR IV PRN (15:15)
--- NOTE | 2016-10-13 15:34 | IPN ---
DATE: 10/13/2016 SUBJECTIVE: Mr. Downey is a 40-year-old male who was seen and examined at the bedside. This morning, the patient received one dose of Dilaudid (2 mg). The patient also received one dose of Ativan (2 mg) IV due to severe headache; however, after that, the patient became lethargic and sleepy. The patient became nonresponsive; however, the patient had normal blood pressure, heart rate, as well as pulse oximetry. When we visited the patient, we found out that the patient is not responsive to pain or to vocal stimulus. We administered 0.4 mg of Narcan two times, which the patient responded to. However, it was noticed that the patient has more weakness on the right upper and lower extremities compared to his baseline. Therefore, we ordered a stat CT of the head without contrast, which did not show any new intracranial lesions. We also have ordered MRI and MRA, which the results are pending. Also, they transferred the patient to progressive care unit (PCU). After the patient was transferred to progressive care unit, the patient complained about chest discomfort. We have ordered a stat EKG, as well as cardiac markers, which the results are pending at this time. According to the nursing report, the patient continued to have headache all night last night. Dr. Cordova requested that the patient be followed by pain management and a consultation for pain management has been ordered; however, the patient has not been seen by pain management yet. The patient did not have vomiting. At the time of the examination, the patient had altered mental status, possibly secondary to opiate medication. Therefore, we have decreased the Dilaudid and Ativan dosage. OBJECTIVE: VITAL SIGNS: Temperature 98.1, pulse 65, respiratory rate 20, blood pressure 122/70, pulse oximetry 92% on room air. GENERAL APPEARANCE: The patient was lying in bed. No acute distress. Lethargic, possibly secondary to medications. NEUROLOGIC: Cranial nerves cannot be obtained at this time due to altered mental status. However, it was noticed that the patient has more weakness on the right upper and lower extremities; however, no facial drooping was noticed. The patient has normal pupil reaction to light bilaterally. HEENT: Normocephalic, atraumatic. Pupils are equal and reactive to light. Oral mucosa is moist. NECK: Soft and supple. Jugular venous distention (JVD) cannot be obtained due to extended neck; however, no lymphadenopathy or thyromegaly noted. HEART: Regular rate and rhythm. Normal S1, S2. ABDOMEN: Morbidly obese. Soft, nontender to palpation. Positive bowel sounds in all quadrants. LUNGS: Clear breath sounds bilaterally. Good air movement. EXTREMITIES: +2 pulses in both lower extremities. Mild pitting edema in both lower extremities. However, range of motion and strength cannot be obtained due to patient's altered mental status and being lethargic, possibly secondary to medications. LABORATORY DATA: White blood cells 8.5, red blood cells 4.51, hemoglobin 13.1, hematocrit 40.2, MCV 89.3, MCH 29.1, MCHC 32.7, RDW 14.2, platelet count 194, neutrophil percentage 74.6, lymphocyte percentage 17.3, monocyte percentage 6.2, eosinophil percentage 0.2, basophile percentage 0.1, leukocyte percentage 1.6. Sodium 139, potassium 4.1, chloride 106, carbon dioxide 29, anion gap 4, BUN 20, creatinine 1.11, GFR more than 60, fasting glucose 94, calcium 8.3, magnesium 2.5, total bilirubin 0.4, AST 8, ALT 21, alkaline phosphatase 67, total protein 5.6, albumin 2.9. IMAGING TECHNIQUE: CT of the head shows no intracranial lesions. ASSESSMENT/PLAN: 1. Altered mental status. This is possibly secondary to pain medication (possibility of Dilaudid and Ativan). At this time, the patient is sleepy; however, the patient is responding to vocal stimulus. We have decreased the Dilaudid and Ativan dosage. Also, we have ordered MRI and MRA. Result is pending at this time. We will continue the patient with other medications. Dr. Cordova requested the patient followup with pain management at this time. 2. Chest discomfort. EKG and cardiac markers are pending at this time. Earlier today, we have performed a sternal rub due to the patient being unresponsive. This could be secondary to the sternal rub; however, due to the pain and the stress, we have ordered EKG and cardiac markers, result is pending at this time. 3. Leukocytosis. It has resolved. This was possibly secondary to steroids, which was stopped. 4. Hyperlipidemia. We will continue patient on Zocor. 5. Hypertension. The patient is on metoprolol, losartan, furosemide. 6. Vitamin D deficiency. The patient is on vitamin D 1000 unit supplement. 7. Depression. Patient is on sertraline. 8. Gastroesophageal reflux disease (GERD). We will continue the patient on the current dose of Protonix and famotidine. 9. Deep vein thrombosis (DVT) prophylaxis. The patient is on heparin. 10. Nausea. This is possibly secondary to headache. The patient is on Zofran 4 mg every 6 hours as needed for nausea and vomiting, as well as Reglan 5 mg every 8 hours as needed for pain. My preceptor for this patient encounter was Dr. Carmen Uriostegui. The preceptor was physically present in the building during the encounter and was fully available. As needed, all aspects of the patient interview, examination, medical decision making process, and medical care plan development were reviewed and approved by the preceptor. The preceptor is aware and concurs with the plan as stated in the body of this note and will attest to such by his/her cosignature. My preceptor for this patient encounter was Dr. Kathe Loredo. The preceptor was physically present in the building during the encounter and was fully available. As needed, all aspects of the patient interview, examination, medical decision making process, and medical care plan development were reviewed and approved by the preceptor. The preceptor is aware and concurs with the plan as stated in the body of this note and will attest to such by his/her cosignature.
--- NOTE | 2016-10-13 18:43 | CR ---
DATE OF CONSULTATION: 10/13/2016 REFERRING PROVIDER: Dr. Loredo CHIEF COMPLAINT: 1. Head pain. 2. Right-sided body weakness. HISTORY OF PRESENT ILLNESS: Haja is a 40-year-old gentleman admitted on 10/11/2016 due to severe headache. The patient had received Botox injections from Dr. Cordova morning of admission. The patient states that Botox has helped him tremendously over the past year. He feels as though this head pain is different than migraine headache that he was getting Botox injections for. Describes pain as sharp and stabbing at the temporal lobes bilaterally and throbbing in the occipital area. Yesterday he received Ativan and Dilaudid and ended up having to receive Narcan. He appeared to have right-sided weakness and was complaining of right-sided weakness today. Onset of headaches began approximately 1 year ago without precipitating event. He was also diagnosed about that time with lupus and is on Plaquenil therapy. He was seen by a [facility] 2 weeks ago for similar symptoms. Apparently this was the stroke center at [facility] in [place]. They performed different tests, and they gave him TPA due to the possibility of stroke. However, workup indicated that the patient has complex migraines and was discharged home. The patient reports that since discharge from that institution, he began to notice right-sided facial and body weakness. Denies seizure disorder. Denies recent fever, illness or weight loss. Denies bowel or bladder incontinence. Recent CT scan of the brain is not showing any pathology. He is contemplating returning to [place] for evaluation. Rating pain level as a 9/10. Describes pain as throbbing in nature in the occipital region and stabbing in nature in the temporal area. ALLERGIES: DIHYDROERGOTAMINE, HYDROCODONE, OXYCODONE, PROMETHAZINE, PROPOXYPHENE, TOPIRAMATE. PAST MEDICAL HISTORY: Chronic lower extremity edema, gastroesophageal reflux disease (GERD), morbid obesity, hyperlipidemia, hypertension, migraines. PAST SURGICAL HISTORY: Repair of aortic aneurysm, back surgery L4-5 and S2. REVIEW OF SYSTEMS: Constitutional : Denies recent fever, illness or weight gain. Does report approximately 20-pound weight loss over the past 6-8 weeks of which he verbalizes. HEENT: Headache. Right eye drooping. Denies vision or hearing changes. Denies problems with chewing fluids. Neck: Denies any lumps or bumps or decreased range of motion of his neck. Heart: Denies palpitations or chest pains. Lungs: Denies shortness of breath, coughing or wheezing. Abdomen: The patient reports lack of appetite. Denies abdominal pain. Neurologic: History of chronic headache. History of lupus. Denies seizure disorder. PHYSICAL EXAMINATION: Awake, alert, pleasant. Oriented to person, place and time. He does show hesitation with recall. Vital signs: Temperature 98.5, pulse 58, respirations 20, blood pressure 135/86. Oxygen saturation is 96% on room air. Cardiac: S1, S2, normal rate and rhythm. Respiratory: Lung sounds clear. Diminished in bases. Abdomen is protuberant, morbidly obese, nontender. Neuromuscular: Upper extremities - right arm is slightly weak compared to left. Reporting diminished sensation to light touch over right arm, neck and face compared to left. Lower extremities - Clonus and some weakness noted with muscle strength testing right lower extremity. Left lower extremity is 5/5. Deep tendon reflex 3+/4 bilaterally. Decreased sensation to light touch right lower extremity. Normal sensation to light touch left lower extremity. Neurologic: Pupils are equal. Right eyelid drooping compared to left. [id number] check fairly accurate bilateral index fingers. The patient is able to clap, smile, frown and protrude tongue without difficulty. ASSESSMENT 1. Headache. 2. Right-sided body weakness/paresthesia. PLAN: Would not recommend use of opiates for pain control. May try tizanidine 4 mg by mouth every 6 hours as needed. Consider use of tramadol 50 mg as needed. Consider referral to tertiary care center for further evaluation of his neurological condition. Thank you for allowing us to participate in the care of your patient, Haja Beaver. If you have any questions or concerns, please do not hesitate to contact me. Sincerely, Vero Maki Family Nurse Practitioner [facility] Copy To: Dr. Loredo
[2016-10-13] MEDS: METOCLOPRAMIDE INJ 10MG/2ML VIAL (J2765) IV PRN (18:57)
[2016-10-13] MEDS ORDERED: LORazepam 2 MG/ML VIAL (J2060) IV PRN (19:00)
[2016-10-13] MEDS: METOPROLOL SUCC (TopROL XL) 50MG **XL** TAB PO SCH (21:00)
--- NOTE | 2016-10-13 21:40 | REPUSA ---
CT of the head Clinical history: right-sided weakness. Technique: Multiple axial CT images were obtained through the head without administration of contrast . Comparison: 11/14/2015. Findings: The ventricles and sulci are symmetric bilaterally. There is no evidence of acute hemorrhag e or infarct. There is no midline shift, mass effect, or extra-axial fluid collection. The osseous st ructures are unremarkable. The visualized paranasal sinuses and mastoid air cells are clear. Impression: Negative study.
[2016-10-13] MEDS: SLF 3 ML SYR IV SCH (21:48)
[2016-10-13] MEDS: SIMVASTATIN 40 MG TAB PO SCH (21:49)
[2016-10-13] MEDS: LURASIDONE HCL 40 MG TAB (LATUDA) PO SCH (21:49)
[2016-10-13] MEDS: traZODone 50 MG TAB PO SCH (21:50)
--- NOTE | 2016-10-13 21:50 | IPN ---
DATE: 10/13/2016 This is a quick update regarding patient's medical condition. I went to see the patient and performed examination. Regarding his weakness, at this time, the patient is at his baseline. Also, we have notified neurology. Neurology has ordered CT for followup. This was discussed with the patient, and the patient accepts this. My preceptor for this patient encounter was Dr. Loredo. The preceptor was physically present in the building during the encounter and was fully available. As needed, all aspects of the patient interview, examination, medical decision making process, and medical care plan development were reviewed and approved by the preceptor. The preceptor is aware and concurs with the plan as stated in the body of this note and will attest to such by his/her cosignature. I, Kathe Loredo, have both independently examined this patient as well as reviewed the documentation. I have discussed in detail with the resident the findings and plan of treatment as documented in the residents documentation. I will continue to follow the patient and offer further guidance to the patients care as necessary during this hospital stay. VERENICE
[2016-10-13] MEDS: ZONISAMIDE 100 MG CAP (ZONEGRAN) PO SCH (22:22)
[2016-10-13] MEDS: tiZANidine 4 MG TAB PO PRN (22:22)
[2016-10-14] VITALS (18 sets, daily range): BP systolic 118–149; BP diastolic 70–100; O2SAT 93–97
[2016-10-14] MEDS: tiZANidine 4 MG TAB PO PRN ×3 (04:22→21:27)
[2016-10-14] MEDS: SLF 3 ML SYR IV SCH ×3 (05:42→21:22)
[2016-10-14] MEDS: LEVOTHYROXINE 137MCG TABLET (0.137MG) PO SCH (05:42)
[2016-10-14] MEDS: HEPARIN SOD (PORCINE) 5000 UNITS/ML VIAL SC SCH ×3 (05:42→21:21)
[2016-10-14] MEDS: KETOROLAC 30 MG/ML VIAL (J1885) IV PRN ×2 (05:49→12:12)
[2016-10-14] MEDS: METOCLOPRAMIDE INJ 10MG/2ML VIAL (J2765) IV PRN (05:50)
[2016-10-14 06:02] LABS: BASO % 0.2 % (0.0-1.0); EOS % 0.6 % (0.0-3.0); LARGE UNSTAINED CELL # 0.1 K/mm3 (0.0-0.4); LARGE UNSTAINED CELL % 1.2 % (0.0-4.0); LYMPH # 1.7 K/mm3 (1.5-4.5); LYMPH % 22.8 % (24.0-44.0); MEAN CORPUSCULAR HEMOGLOBIN 29.3 pg (27.0-33.0); MEAN CORPUSCULAR HGB CONC 32.5 g/dl (32.0-36.5); MEAN CORPUSCULAR VOLUME 90.3 fl (80.0-96.0); MONO # 0.5 K/mm3 (0.0-0.8); MONO % 7.1 % (0.0-5.0); NEUTROPHILS # 4.9 K/mm3 (1.8-7.7); NEUTROPHILS % 68.1 % (36.0-66.0); PLATELET COUNT, AUTOMATED 186 k/mm3 (150-450); RED CELL DISTRIBUTION WIDTH 14.3 % (11.5-14.5); WHITE BLOOD COUNT 7.2 K/mm3 (4.0-10.0)
[2016-10-14 06:23] LABS: ALBUMIN 3.1 GM/DL (3.2-5.2); ALBUMIN/GLOBULIN RATIO 1.07 (1.00-1.93); ALKALINE PHOSPHATASE 71 U/L (45-117); ALT/SGPT 24 U/L (12-78); ANION GAP 5 MEQ/L (8-16); AST/SGOT 7 U/L (15-37); BILIRUBIN,TOTAL 0.7 MG/DL (0.2-1.0); BLOOD UREA NITROGEN 18 MG/DL (7-18); CALCIUM LEVEL 8.7 MG/DL (8.5-10.1); CARBON DIOXIDE LEVEL 28 MEQ/L (21-32); CHLORIDE LEVEL 108 MEQ/L (98-107); CREATININE FOR GFR 0.96 MG/DL (0.70-1.30); GLOMERULAR FILTRATION RATE > 60.0 (>60); GLUCOSE, FASTING 87 MG/DL (70-105); MAGNESIUM LEVEL 2.5 MG/DL (1.8-2.4); SODIUM LEVEL 141 MEQ/L (136-145)
--- NOTE | 2016-10-14 08:28 | IPNPDOC ---
Text Note Date of Service The patient was seen on 10/14/16. NOTE Subjective: Pt states he still has a frontal POTTER. Non radiating. No vision changes. Symptoms have completely resolved yesterday. Objective: Vitals: (see below) General: No acute distress, laying comfortably in bed. HEENT: Moist mucous membranes. Neck: No JVD or lymphadenopathy Cardiac: RRR, No murmurs Pulm: Clear to auscultation b/l. No wheezing, rhonchi Abd: NT/ND + BS Ext: No edema or cyanosis Neuro: Strength 4-5/5 RUE/RLE. 5/5 strength LLE/LUE. CN 2-12 intact. F to N intact Negative Babinki. DTR 2+ throughout. Labs (see below) Images: CT head 10/13/16 Findings: The ventricles and sulci are symmetric bilaterally. There is no evidence of acute hemorrhage or infarct. There is no midline shift, mass effect , or extra-axial fluid collection. The osseous structures are unremarkable. The visualized paranasal sinuses and mastoid air cells are clear. Impression: Negative study. Assessment/Plan 1. Intractable migraine, with complex features including right-sided paresis. Patient has had extensive headaches in the past and has been receiving Botox consider injection at the neurology clinic. Patient has also had extensive workup [facility] with subsequent TPA given for possible stroke. The patient has had a dexamethasone, ketorolac, Reglan, hydromorphone morphine, Benadryl, Ativan since admission. Neurology had recommended per management consultation. Pain management evaluated the patient yesterday with recommendations to avoid opiates as the patient was lethargic yesterday requiring Narcan. Recommendations by pain management include tizanidine as well as tramadol as needed. Questionable whether patient is having rebound headaches. CTA head and neck pending. ESR/CRP within normal limits. Discussed with Dr. Aggarwal - recommends open MRI. [place] are no beds available at this time. The patient is on schedule for an open MRI on Thursday. Neurology on board. Continue neuro checks. 2. Leukocytosis- likely secondary to steroids. Afebrile. Continue to monitor. 3. Hyperlipidemia- on statin 4. Hypertension- continue current meds 5. Vitamin D deficiency on supplementation- 6. Depression- on SSRI 7. GERD on Protonix DVT prophy: Heparin subcutaneous Update: At 2:55 PM have spoken to Dr. Flores, neuro chute worker at [facility], who reports that the patient had been admitted on September 29 2016 with similar symptoms with right facial droop as well as right-sided hemiparesis and unresponsiveness, NIH 13, had received TPA, with a follow-up MRI 24 hours with no stroke noted. Dr. Flores also noted that the patient's did have a right- sided drift on discharge and had been having headaches during his hospitalization. He also recommended that the patient's not have any emergent MRIs as he recently had 2 MRIs that were negative. He also recommends that the patient be transferred. I have had an extensive conversation with the patient as well as his mother, regarding the above. We will continue managing the patient's migraine, however the patient and the mother understand that he will ultimately need to see a headache specialist outpatient. VS,Maday, I+O VS, Jonathane, I+O Laboratory Tests 10/14/16 05:28 Red Blood Count 4.64, Mean Corpuscular Volume 90.3, Mean Corpuscular Hemoglobin 29.3, Mean Corpuscular Hemoglobin Concent 32.5, Red Cell Distribution Width 14.3 , Neutrophils (%) (Auto) 68.1 H, Lymphocytes (%) (Auto) 22.8 L, Monocytes (%) ( Auto) 7.1 H, Eosinophils (%) (Auto) 0.6, Basophils (%) (Auto) 0.2, Neutrophils # (Auto) 4.9, Lymphocytes # (Auto) 1.7, Monocytes # (Auto) 0.5, Eosinophils # ( Auto) 0.0, Basophils # (Auto) 0.0, Calcium Level 8.7, Aspartate Amino Transf ( AST/SGOT) 7 L, Alanine Aminotransferase (ALT/SGPT) 24, Alkaline Phosphatase 71, Total Bilirubin 0.7 #, Total Protein 6.0 L, Albumin 3.1 L Vital Signs Date Time Temp Pulse Resp B/P (MAP) Pulse Ox O2 Delivery O2 Flow Rate FiO2 10/14/16 04:00 97.8 62 18 123/76 (92) 94 Room Air I&O- Last 24 Hours up to 6 AM 10/14/16 06:00 Intake Total 1630 ml Output Total 1400 ml Balance 230 ml MATILDE WEISS MD Oct 14, 2016 08:28
[2016-10-14] MEDS: HYDROXYCHLOROQUINE 200 MG TAB PO SCH ×2 (08:40→21:25)
[2016-10-14] MEDS: predniSONE 5 MG TAB PO SCH ×2 (08:40→17:24)
[2016-10-14] MEDS: ASPIRIN 81 MG ENTERIC TAB PO SCH (08:40)
[2016-10-14] MEDS: FUROSEMIDE 20 MG TAB PO SCH ×2 (08:41→17:25)
[2016-10-14] MEDS: traMADol 50 MG TAB PO SCH ×2 (08:41→21:26)
[2016-10-14] MEDS: POTASSIUM CHLORIDE 10 MEQ SR TABLET PO SCH (08:41)
[2016-10-14] MEDS: VITAMIN D 1,000 INTERNATIONAL UNITS TABLET PO SCH (08:42)
[2016-10-14] MEDS: LOSARTAN 25 MG TAB PO SCH (08:42)
[2016-10-14] MEDS: PANTOPRAZOLE 40MG TAB (PROTONIX) PO SCH ×2 (08:43→21:25)
[2016-10-14] MEDS: SERTRALINE HCL 50 MG TAB PO SCH (08:43)
[2016-10-14] MEDS: MAGNESIUM OXIDE 400 MG TAB (MAG-OX) PO SCH (08:43)
[2016-10-14] MEDS: FAMOTIDINE 20 MG TAB PO SCH (08:43)
[2016-10-14] MEDS: rOPINIRole 1MG TAB PO SCH ×2 (08:43→21:22)
[2016-10-14] MEDS: VERAPAMIL 40 MG TAB PO SCH ×2 (08:48→21:21)
[2016-10-14 10:22] LABS: ERYTHROCYTE SEDIMENTATION RATE 6 mm/hr (0-15)
[2016-10-14] MEDS ORDERED: ISOVUE-370 76% 100ML VIAL (Q9967) As Ordered ONE (10:56)
--- NOTE | 2016-10-14 14:51 | REP ---
CT ANGIO HEAD: HISTORY: Left side weakness. CONTRAST: Isovue 370 100 mL. There is no aneurysm, arteriovenous malformation or atherosclerotic lesion. The major intracranial vessels are patent. The left vertebral artery is dominant. IMPRESSION: Normal CT ANGIO head. Signed by Power Santoyo MD 10/14/2016 03:06 P
--- NOTE | 2016-10-14 14:56 | REP ---
CT ANGIO NECK: HISTORY: Left-sided weakness. CONTRAST: Isovue 370, 100 mL. The distal common carotid arteries and origins of the external and internal carotid arteries are normal. The vertebral arteries are patent. The left vertebral artery is dominant. The origins of the great vessels are normal in appearance. There are no atherosclerotic lesions. A 2 cm hypodensity is present in the left thyroid lobe. This most likely represents a cyst. The right thyroid lobe is normal. Degenerative change is present in the cervical spine. IMPRESSION: 1. Normal CT ANGIO neck. 2. There is a 2 cm hypodensity in the left thyroid lobe. This most likely represents a cyst. Signed by Power Santoyo MD 10/14/2016 03:07 P
[2016-10-14] MEDS: FIORICET TAB PO PRN ×2 (16:24→21:29)
[2016-10-14] MEDS: METOPROLOL SUCC (TopROL XL) 50MG **XL** TAB PO SCH (21:00)
[2016-10-14] MEDS: ZONISAMIDE 100 MG CAP (ZONEGRAN) PO SCH (21:23)
[2016-10-14] MEDS: traZODone 50 MG TAB PO SCH (21:24)
[2016-10-14] MEDS: LURASIDONE HCL 40 MG TAB (LATUDA) PO SCH (21:26)
[2016-10-14] MEDS: SIMVASTATIN 40 MG TAB PO SCH (21:27)
[2016-10-15] VITALS (19 sets, daily range): BP systolic 103–132; BP diastolic 51–86; O2SAT 91–96
[2016-10-15] MEDS: FIORICET TAB PO PRN (03:25)
[2016-10-15 05:53] LABS: BASO % 0.3 % (0.0-1.0); EOS # 0.1 K/mm3 (0.0-0.50); EOS % 1.3 % (0.0-3.0); LARGE UNSTAINED CELL # 0.1 K/mm3 (0.0-0.4); LARGE UNSTAINED CELL % 1.5 % (0.0-4.0); LYMPH # 2.1 K/mm3 (1.5-4.5); LYMPH % 24.3 % (24.0-44.0); MEAN CORPUSCULAR HEMOGLOBIN 29.5 pg (27.0-33.0); MEAN CORPUSCULAR HGB CONC 32.8 g/dl (32.0-36.5); MEAN CORPUSCULAR VOLUME 89.9 fl (80.0-96.0); MONO # 0.5 K/mm3 (0.0-0.8); MONO % 5.8 % (0.0-5.0); NEUTROPHILS # 5.4 K/mm3 (1.8-7.7); NEUTROPHILS % 66.9 % (36.0-66.0); PLATELET COUNT, AUTOMATED 182 k/mm3 (150-450); RED CELL DISTRIBUTION WIDTH 14.1 % (11.5-14.5); WHITE BLOOD COUNT 8.1 K/mm3 (4.0-10.0)
[2016-10-15 06:10] LABS: ALBUMIN 3.1 GM/DL (3.2-5.2); ALBUMIN/GLOBULIN RATIO 1.35 (1.00-1.93); ALKALINE PHOSPHATASE 69 U/L (45-117); ALT/SGPT 23 U/L (12-78); ANION GAP 5 MEQ/L (8-16); AST/SGOT 12 U/L (15-37); BILIRUBIN,TOTAL 0.5 MG/DL (0.2-1.0); BLOOD UREA NITROGEN 16 MG/DL (7-18); CALCIUM LEVEL 8.2 MG/DL (8.5-10.1); CARBON DIOXIDE LEVEL 28 MEQ/L (21-32); CHLORIDE LEVEL 107 MEQ/L (98-107); CREATININE FOR GFR 0.99 MG/DL (0.70-1.30); GLOMERULAR FILTRATION RATE > 60.0 (>60); GLUCOSE, FASTING 78 MG/DL (70-105); MAGNESIUM LEVEL 2.6 MG/DL (1.8-2.4); POTASSIUM SERUM 3.9 MEQ/L (3.5-5.1); SODIUM LEVEL 140 MEQ/L (136-145); TOTAL PROTEIN 5.4 GM/DL (6.4-8.2)
[2016-10-15] MEDS: LEVOTHYROXINE 137MCG TABLET (0.137MG) PO SCH (06:13)
[2016-10-15] MEDS: HEPARIN SOD (PORCINE) 5000 UNITS/ML VIAL SC SCH ×3 (06:14→22:30)
[2016-10-15] MEDS: SLF 3 ML SYR IV SCH ×3 (06:14→22:30)
[2016-10-15] MEDS: predniSONE 5 MG TAB PO SCH ×2 (09:34→17:13)
[2016-10-15] MEDS: ASPIRIN 81 MG ENTERIC TAB PO SCH (09:34)
[2016-10-15] MEDS: rOPINIRole 1MG TAB PO SCH (09:35)
[2016-10-15] MEDS: traMADol 50 MG TAB PO SCH (09:36)
[2016-10-15] MEDS: HYDROXYCHLOROQUINE 200 MG TAB PO SCH (09:36)
[2016-10-15] MEDS: SERTRALINE HCL 50 MG TAB PO SCH (09:37)
[2016-10-15] MEDS: VITAMIN D 1,000 INTERNATIONAL UNITS TABLET PO SCH (09:37)
[2016-10-15] MEDS: PANTOPRAZOLE 40MG TAB (PROTONIX) PO SCH ×2 (09:37→22:29)
[2016-10-15] MEDS: POTASSIUM CHLORIDE 10 MEQ SR TABLET PO SCH (09:37)
[2016-10-15] MEDS: FUROSEMIDE 20 MG TAB PO SCH ×2 (09:37→17:13)
[2016-10-15] MEDS: FAMOTIDINE 20 MG TAB PO SCH (09:38)
[2016-10-15] MEDS: LOSARTAN 25 MG TAB PO SCH (09:38)
[2016-10-15] MEDS: VERAPAMIL 40 MG TAB PO SCH (09:51)
[2016-10-15 10:55] LABS: ABG BASE EXCESS -0.3 (-2.0-2.0); ABG HCO3 23.6 MEQ/L (22.0-26.0); ABG PARTIAL PRESSURE CO2 36.4 mmHg (35.0-45.0); ABG PARTIAL PRESSURE O2 68.3 mmHg (75.0-100.0); ABG STANDARD HCO3 24.2 MEQ/L (22.0-26.0); ABG TOTAL CO2 24.7 MEQ/L (22.0-29.0)
--- NOTE | 2016-10-15 11:46 | REP ---
CT Head without contrast HISTORY: Lethargy COMPARISON: 10/13/2016 There is no intraparenchymal hemorrhage, acute infarct, mass or midline shift. The ventricular system is normal in appearance. There is no extra cerebral collection. There is no fracture. The visualized sinuses are clear. IMPRESSION: There is no intracranial lesion. Signed by Power Santoyo MD 10/15/2016 11:37 A
--- NOTE | 2016-10-15 12:14 | IPNPDOC ---
Text Note Date of Service The patient was seen on 10/15/16. NOTE Subjective: Pt states he still is more lethargic today since starting the fioricet and muscle relaxer. No vision changes. Objective: Vitals: (see below) General: No acute distress, laying comfortably in bed. HEENT: Moist mucous membranes. Neck: No JVD or lymphadenopathy Cardiac: RRR, No murmurs Pulm: Clear to auscultation b/l. No wheezing, rhonchi Abd: NT/ND + BS Ext: No edema or cyanosis Neuro: Strength 3-4 RUE/RLE. 5/5 strength LLE/LUE. CN 2-12 intact. F to N intact Negative Babinki. DTR 2+ throughout. Labs (see below) Images: CT head 10/13/16 Findings: The ventricles and sulci are symmetric bilaterally. There is no evidence of acute hemorrhage or infarct. There is no midline shift, mass effect , or extra-axial fluid collection. The osseous structures are unremarkable. The visualized paranasal sinuses and mastoid air cells are clear. Impression: Negative study. Assessment/Plan 1. Intractable migraine, with complex features including right-sided paresis. Patient has had extensive headaches in the past and has been receiving Botox consider injection at the neurology clinic. Patient has also had extensive workup in [facility] with subsequent TPA given for possible stroke. The patient has had a dexamethasone, ketorolac, Reglan, hydromorphone morphine, Benadryl, Ativan since admission. Neurology on consultation. Pain management evaluated the patient with recommendations to avoid opiates as the patient was lethargic yesterday requiring Narcan. Recommendations by pain management include tizanidine as well as tramadol as needed. Questionable whether patient is having rebound headaches. D/c fioricet. CTA head and neck pending. ESR/CRP within normal limits. Discussed with Dr. Aggarwal - recommends open MRI. I [place] however there are no beds available at this time. The patient is on schedule for an open MRI on Thursday. Neurology on board. Continue neuro checks. 2. Leukocytosis- likely secondary to steroids. Afebrile. Continue to monitor. 3. Hyperlipidemia- on statin 4. Hypertension- continue current meds 5. Vitamin D deficiency on supplementation- 6. Depression- on SSRI 7. GERD on Protonix 8. History of schizophrenia/bipolar disorder- continue current meds DVT prophy: Heparin subcutaneous Pt requested a transfer to [place] to obtain MRI. I have called [facility] , who advised that they don't have any beds. Open MRI scheduled for Thursday. I have had an extensive conversation with the patient as well as his mother and father, as well as Dr. Aggarwal regarding the above. We will continue managing the patient's migraine, however the patient and the mother understand that he will ultimately need to see a headache specialist outpatient. Spoke with Dr. Peoples (PCP) today who is not sure of any rheumatologic disorder, even after reading the office notes from the cardiac cath lab technologist. Patient was also evaluated for temporal arteritis at one point by the cardiac cath lab technologist and it would not help. Patient also had a negative Lyme disease of time. Dr. Peoples is an not sure why the patient is on Plaquenil so we will stop that at this time as it can precipitate headaches. We will continue to follow-up with neurology recommendations. Patient is also on ropinirole as well as trazodone which have been noted to precipitate headaches as well and they will be stopped for now. VS,Fishbone, I+O VS, Fishbone, I+O Laboratory Tests 10/15/16 05:22 Red Blood Count 4.62, Mean Corpuscular Volume 89.9, Mean Corpuscular Hemoglobin 29.5, Mean Corpuscular Hemoglobin Concent 32.8, Red Cell Distribution Width 14.1 , Neutrophils (%) (Auto) 66.9 H, Lymphocytes (%) (Auto) 24.3, Monocytes (%) ( Auto) 5.8 H, Eosinophils (%) (Auto) 1.3, Basophils (%) (Auto) 0.3, Neutrophils # (Auto) 5.4, Lymphocytes # (Auto) 2.1, Monocytes # (Auto) 0.5, Eosinophils # ( Auto) 0.1, Basophils # (Auto) 0.0, Calcium Level 8.2 L, Aspartate Amino Transf ( AST/SGOT) 12 L, Alanine Aminotransferase (ALT/SGPT) 23, Alkaline Phosphatase 69 , Total Bilirubin 0.5, Total Protein 5.4 L, Albumin 3.1 L Vital Signs Date Time Temp Pulse Resp B/P (MAP) Pulse Ox O2 Delivery O2 Flow Rate FiO2 10/15/16 09:51 75 124/78 10/15/16 09:36 18 10/15/16 08:00 97.4 95 NIPPV (BIPAP/CPAP) I&O- Last 24 Hours up to 6 AM 10/15/16 06:00 Intake Total 1080 ml Output Total 1800 ml Balance -720 ml MATILDE WEISS MD Oct 15, 2016 12:14
[2016-10-15] MEDS: ACETAMINOPHEN TAB 650MG DOSE (2X325MG) PO PRN (12:48)
[2016-10-15] MEDS ORDERED: tiZANidine 4 MG TAB PO PRN ×2 (13:00→20:45)
[2016-10-15] MEDS: IBUPROFEN 600 MG TAB PO PRN (16:42)
[2016-10-15] MEDS: LURASIDONE HCL 40 MG TAB (LATUDA) PO SCH (22:29)
[2016-10-15] MEDS: ZONISAMIDE 100 MG CAP (ZONEGRAN) PO SCH (22:30)
[2016-10-15] MEDS: SIMVASTATIN 40 MG TAB PO SCH (22:30)
[2016-10-16] VITALS (19 sets, daily range): BP systolic 110–143; BP diastolic 56–88; O2SAT 91–98
[2016-10-16] MEDS: HEPARIN SOD (PORCINE) 5000 UNITS/ML VIAL SC SCH ×3 (06:00→21:36)
[2016-10-16] MEDS: LEVOTHYROXINE 137MCG TABLET (0.137MG) PO SCH (06:00)
[2016-10-16] MEDS: SLF 3 ML SYR IV SCH ×3 (06:01→21:40)
[2016-10-16 06:53] LABS: BASO % 0.3 % (0.0-1.0); EOS # 0.1 K/mm3 (0.0-0.50); EOS % 1.5 % (0.0-3.0); LARGE UNSTAINED CELL # 0.1 K/mm3 (0.0-0.4); LARGE UNSTAINED CELL % 1.4 % (0.0-4.0); LYMPH # 1.8 K/mm3 (1.5-4.5); LYMPH % 21.2 % (24.0-44.0); MEAN CORPUSCULAR HEMOGLOBIN 29.9 pg (27.0-33.0); MEAN CORPUSCULAR HGB CONC 33.5 g/dl (32.0-36.5); MEAN CORPUSCULAR VOLUME 89.2 fl (80.0-96.0); MONO # 0.4 K/mm3 (0.0-0.8); MONO % 4.8 % (0.0-5.0); NEUTROPHILS # 6.1 K/mm3 (1.8-7.7); NEUTROPHILS % 70.7 % (36.0-66.0); PLATELET COUNT, AUTOMATED 190 k/mm3 (150-450); RED CELL DISTRIBUTION WIDTH 13.9 % (11.5-14.5); WHITE BLOOD COUNT 8.6 K/mm3 (4.0-10.0)
[2016-10-16 07:19] LABS: ALBUMIN 3.1 GM/DL (3.2-5.2); ALKALINE PHOSPHATASE 77 U/L (45-117); ALT/SGPT 33 U/L (12-78); ANION GAP 6 MEQ/L (8-16); AST/SGOT 15 U/L (15-37); BILIRUBIN,TOTAL 0.5 MG/DL (0.2-1.0); BLOOD UREA NITROGEN 16 MG/DL (7-18); CALCIUM LEVEL 8.4 MG/DL (8.5-10.1); CARBON DIOXIDE LEVEL 27 MEQ/L (21-32); CHLORIDE LEVEL 108 MEQ/L (98-107); GLOMERULAR FILTRATION RATE > 60.0 (>60); GLUCOSE, FASTING 76 MG/DL (70-105); MAGNESIUM LEVEL 2.6 MG/DL (1.8-2.4); POTASSIUM SERUM 3.8 MEQ/L (3.5-5.1); SODIUM LEVEL 141 MEQ/L (136-145); TOTAL PROTEIN 6.2 GM/DL (6.4-8.2)
[2016-10-16] MEDS: MAGNESIUM OXIDE 400 MG TAB (MAG-OX) PO SCH (09:00)
[2016-10-16] MEDS ORDERED: VERAPAMIL 40 MG TAB PO SCH (09:00)
[2016-10-16] MEDS: predniSONE 5 MG TAB PO SCH ×2 (09:15→17:17)
[2016-10-16] MEDS: SERTRALINE HCL 50 MG TAB PO SCH (09:16)
[2016-10-16] MEDS: PANTOPRAZOLE 40MG TAB (PROTONIX) PO SCH ×2 (09:16→21:36)
[2016-10-16] MEDS: LOSARTAN 25 MG TAB PO SCH (09:17)
[2016-10-16] MEDS: VITAMIN D 1,000 INTERNATIONAL UNITS TABLET PO SCH (09:17)
[2016-10-16] MEDS: FAMOTIDINE 20 MG TAB PO SCH (09:17)
[2016-10-16] MEDS: ASPIRIN 81 MG ENTERIC TAB PO SCH (09:17)
[2016-10-16] MEDS: FUROSEMIDE 20 MG TAB PO SCH ×2 (09:18→17:17)
[2016-10-16] MEDS: POTASSIUM CHLORIDE 10 MEQ SR TABLET PO SCH (09:18)
--- NOTE | 2016-10-16 13:19 | IPNPDOC ---
Text Note Date of Service The patient was seen on 10/16/16. NOTE Subjective: Pt has been observed ambulating by himself, with a walker, and is able to have weight bearing on the right. Objective: Vitals: (see below) General: No acute distress, laying comfortably in bed. HEENT: Moist mucous membranes. Neck: No JVD or lymphadenopathy Cardiac: RRR, No murmurs Pulm: Clear to auscultation b/l. No wheezing, rhonchi Abd: NT/ND + BS Ext: No edema or cyanosis Neuro: Strength: 5 RUE/RLE. 5/5 strength LLE/LUE. CN 2-12 intact. F to N intact Negative Babinki. DTR 2+ throughout. Labs (see below) Images: CT head 10/13/16 Findings: The ventricles and sulci are symmetric bilaterally. There is no evidence of acute hemorrhage or infarct. There is no midline shift, mass effect , or extra-axial fluid collection. The osseous structures are unremarkable. The visualized paranasal sinuses and mastoid air cells are clear. Impression: Negative study. Assessment/Plan 1. Intractable migraine, with complex features including right-sided paresis. Patient has had extensive headaches in the past and has been receiving Botox consider injection at the neurology clinic. Patient has also had extensive workup in [facility] with subsequent TPA given for possible stroke. The patient has had dexamethasone, ketorolac, Reglan, hydromorphone morphine, Benadryl, Ativan since admission. Neurology had recommended per management consultation. Pain management evaluated the patient yesterday with recommendations to avoid opiates as the patient was lethargic yesterday requiring Narcan. Recommendations by pain management include tizanidine as well as tramadol as needed, however these were d/c as pt become Lethargic with them. Questionable whether patient is having rebound headaches. D/c Fioricet CTA head and neck negative. ESR/CRP within normal limits. Discussed with Dr. Aggarwal - recommends open MRI. The patient is on schedule for an open MRI on Thursday. Neurology on board. Continue neuro checks. Trazodone, Plaquenil, and Ropinirole have been d/ c as they can precipitate HAs. Pt has full strength and is back to his baseline. 2. Leukocytosis- likely secondary to steroids. Afebrile. Continue to monitor. 3. Hyperlipidemia- on statin 4. Hypertension- continue current meds 5. Vitamin D deficiency on supplementation- 6. Depression- on SSRI 7. GERD on Protonix 8. History of schizophrenia/bipolar disorder- continue current meds DVT prophy: Heparin subcutaneous Will continue to PT/OT. Open MRI/MRA Brain scheduled for tomorrow. VS,Fishbone, I+O VS, Fishbone, I+O Laboratory Tests 10/16/16 06:36 Red Blood Count 4.87, Mean Corpuscular Volume 89.2, Mean Corpuscular Hemoglobin 29.9, Mean Corpuscular Hemoglobin Concent 33.5, Red Cell Distribution Width 13.9 , Neutrophils (%) (Auto) 70.7 H, Lymphocytes (%) (Auto) 21.2 L, Monocytes (%) ( Auto) 4.8, Eosinophils (%) (Auto) 1.5, Basophils (%) (Auto) 0.3, Neutrophils # ( Auto) 6.1, Lymphocytes # (Auto) 1.8, Monocytes # (Auto) 0.4, Eosinophils # (Auto ) 0.1, Basophils # (Auto) 0.0, Calcium Level 8.4 L, Aspartate Amino Transf (AST/ SGOT) 15, Alanine Aminotransferase (ALT/SGPT) 33, Alkaline Phosphatase 77, Total Bilirubin 0.5, Total Protein 6.2 L, Albumin 3.1 L Vital Signs Date Time Temp Pulse Resp B/P (MAP) Pulse Ox O2 Delivery O2 Flow Rate FiO2 10/16/16 12:35 98.5 78 16 126/80 (95) 97 Room Air I&O- Last 24 Hours up to 6 AM 10/16/16 06:00 Intake Total 1320 ml Output Total 3275 ml Balance -1955 ml MATILDE WEISS MD Oct 16, 2016 13:19
[2016-10-16] MEDS ORDERED: PHENYLEPHRINE 2.5% OPHTH SOL 2ML OU ONE (20:00)
[2016-10-16] MEDS ORDERED: TROPICAMIDE 1% OPHTH SOLN 2ML OU ONE (20:00)
--- NOTE | 2016-10-16 20:55 | CR ---
DATE OF CONSULTATION: 10/16/2016 CONSULTATION REPORT FOR: Elaina Aggarwal MD, neurology ROOM: Eye examining room in the emergency department. HISTORY AND CHIEF COMPLAINT: Mr. Beaver is a 40-year-old gentleman who is being admitted by neurology for intractable complex migraine headaches. Dr. Aggarwal wanted me to assess the optic nerves for papilledema. Mr. Beaver has "the worst headache of his life." He has no visual disturbance or changes in vision due to position of his body. He has no loss of visual field, light sensitivity or diplopia. PAST OCULAR HISTORY: Wears glasses to correct nearsightedness. PERTINENT PAST MEDICAL HISTORY: Mr. 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 ON EXAMINATION: Vision with current glasses: Right eye: 20/25, left eye: 20/25. Extraocular eye movements: Both eyes: Full. Cranial nerves function III, IV, , VII, intact bilaterally. Pupils: Both eyes: Equal, round, regular and reactive to light. No relative afferent pupillary defect present. Intraocular pressure: Both eyes: 16 mmHg. External examination: Normal lids, lashes, conjunctivae, sclerae. Slit lamp examination: Both eyes: Corneas: Clear, anterior chamber: Deep and quiet, iris: Normal, lens: Clear. Fundal examination through dilated pupils disc: Both eyes: No evidence of papilledema. CD ratio: Both eyes: 0.2. Sclerae crescent. Macular: Both eyes: Normal. Blood vessels: Both eyes: Normal. Peripheral retina: Both eyes: Normal. IMPRESSION: 1. Intractable complex migraine headaches. 2. No evidence of papilledema present in either eye. PLAN: I discussed the findings with Mr. Beaver. He understood the findings completely. A followup appointment is not required. VERENICE
[2016-10-16] MEDS: ZONISAMIDE 100 MG CAP (ZONEGRAN) PO SCH (21:37)
[2016-10-16] MEDS: SIMVASTATIN 40 MG TAB PO SCH (21:37)
[2016-10-16] MEDS: LURASIDONE HCL 40 MG TAB (LATUDA) PO SCH (21:37)
[2016-10-16] MEDS: FIORICET TAB PO PRN (22:10)
[2016-10-17] VITALS (16 sets, daily range): BP systolic 123–140; BP diastolic 69–84; O2SAT 94–97
[2016-10-17 05:49] LABS: BASO % 0.2 % (0.0-1.0); EOS # 0.2 K/mm3 (0.0-0.50); EOS % 1.7 % (0.0-3.0); LARGE UNSTAINED CELL # 0.1 K/mm3 (0.0-0.4); LARGE UNSTAINED CELL % 0.8 % (0.0-4.0); LYMPH # 1.9 K/mm3 (1.5-4.5); LYMPH % 18.2 % (24.0-44.0); MEAN CORPUSCULAR HEMOGLOBIN 28.9 pg (27.0-33.0); MEAN CORPUSCULAR HGB CONC 32.8 g/dl (32.0-36.5); MEAN CORPUSCULAR VOLUME 88.1 fl (80.0-96.0); MONO # 0.5 K/mm3 (0.0-0.8); MONO % 5.5 % (0.0-5.0); NEUTROPHILS # 7.2 K/mm3 (1.8-7.7); NEUTROPHILS % 73.7 % (36.0-66.0); PLATELET COUNT, AUTOMATED 196 k/mm3 (150-450); RED CELL DISTRIBUTION WIDTH 14.1 % (11.5-14.5); WHITE BLOOD COUNT 9.8 K/mm3 (4.0-10.0)
[2016-10-17 06:08] LABS: ALBUMIN 3.4 GM/DL (3.2-5.2); ALBUMIN/GLOBULIN RATIO 1.03 (1.00-1.93); ALKALINE PHOSPHATASE 81 U/L (45-117); ALT/SGPT 38 U/L (12-78); ANION GAP 6 MEQ/L (8-16); AST/SGOT 15 U/L (15-37); BILIRUBIN,TOTAL 0.6 MG/DL (0.2-1.0); BLOOD UREA NITROGEN 15 MG/DL (7-18); CALCIUM LEVEL 8.8 MG/DL (8.5-10.1); CARBON DIOXIDE LEVEL 25 MEQ/L (21-32); CHLORIDE LEVEL 105 MEQ/L (98-107); CREATININE FOR GFR 0.94 MG/DL (0.70-1.30); GLOMERULAR FILTRATION RATE > 60.0 (>60); GLUCOSE, FASTING 84 MG/DL (70-105); MAGNESIUM LEVEL 2.5 MG/DL (1.8-2.4); POTASSIUM SERUM 3.7 MEQ/L (3.5-5.1); SODIUM LEVEL 136 MEQ/L (136-145); TOTAL PROTEIN 6.7 GM/DL (6.4-8.2)
[2016-10-17] MEDS: HEPARIN SOD (PORCINE) 5000 UNITS/ML VIAL SC SCH ×3 (06:11→22:19)
[2016-10-17] MEDS: LEVOTHYROXINE 137MCG TABLET (0.137MG) PO SCH (06:11)
[2016-10-17] MEDS: SLF 3 ML SYR IV SCH ×3 (06:12→22:00)
[2016-10-17] MEDS: ASPIRIN 81 MG ENTERIC TAB PO SCH (08:25)
[2016-10-17] MEDS: predniSONE 5 MG TAB PO SCH (08:25)
[2016-10-17] MEDS: VITAMIN D 1,000 INTERNATIONAL UNITS TABLET PO SCH (08:25)
[2016-10-17] MEDS: PANTOPRAZOLE 40MG TAB (PROTONIX) PO SCH ×2 (08:25→20:03)
[2016-10-17] MEDS: LOSARTAN 25 MG TAB PO SCH (08:26)
[2016-10-17] MEDS: POTASSIUM CHLORIDE 10 MEQ SR TABLET PO SCH (08:26)
[2016-10-17] MEDS: FAMOTIDINE 20 MG TAB PO SCH (08:26)
[2016-10-17] MEDS: FUROSEMIDE 20 MG TAB PO SCH ×2 (08:27→17:26)
[2016-10-17] MEDS: SERTRALINE HCL 50 MG TAB PO SCH (08:27)
[2016-10-17] MEDS: FIORICET TAB PO PRN ×2 (08:28→20:04)
[2016-10-17] MEDS: ACETAMINOPHEN TAB 650MG DOSE (2X325MG) PO PRN ×2 (10:05→23:33)
--- NOTE | 2016-10-17 11:07 | IPNPDOC ---
Text Note Date of Service The patient was seen on 10/17/16. NOTE Subjective: POTTER improving. Strength and sensation back to baseline. Eval by ophtho last night - no papilledema. Objective: Vitals: (see below) General: No acute distress, laying comfortably in bed. HEENT: Moist mucous membranes. Neck: No JVD or lymphadenopathy Cardiac: RRR, No murmurs Pulm: Clear to auscultation b/l. No wheezing, rhonchi Abd: NT/ND + BS Ext: No edema or cyanosis Neuro: Strength: 5 RUE/RLE. 5/5 strength LLE/LUE. CN 2-12 intact. F to N intact Negative Babinki. DTR 2+ throughout. Labs (see below) Images: CT head 10/13/16 Findings: The ventricles and sulci are symmetric bilaterally. There is no evidence of acute hemorrhage or infarct. There is no midline shift, mass effect , or extra-axial fluid collection. The osseous structures are unremarkable. The visualized paranasal sinuses and mastoid air cells are clear. Impression: Negative study. Assessment/Plan 1. Intractable migraine, with complex features including right-sided paresis. Patient has had extensive headaches in the past and has been receiving Botox consider injection at the neurology clinic. Patient has also had extensive workup in [facility] with subsequent TPA given for possible stroke. The patient has had dexamethasone, ketorolac, Reglan, hydromorphone morphine, Benadryl, Ativan since admission. Neurology had recommended per management consultation. Pain management evaluated the patient yesterday with recommendations to avoid opiates as the patient was lethargic yesterday requiring Narcan. Recommendations by pain management include tizanidine as well as tramadol as needed, however these were d/c as pt become Lethargic with them. Questionable whether patient is having rebound headaches. D/c Fioricet CTA head and neck negative. ESR/CRP within normal limits. Discussed with Dr. Aggarwal - recommends open MRI. Neurology on board. Continue neuro checks. Trazodone, Plaquenil, have been d/c as they can precipitate HAs. Pt has full strength and is back to his baseline. Evaluated by ophtho - no papilledema noted. 2. Leukocytosis- likely secondary to steroids. Afebrile. Continue to monitor. 3. Hyperlipidemia- on statin 4. Hypertension- continue current meds 5. Vitamin D deficiency on supplementation- 6. Depression- on SSRI 7. GERD on Protonix 8. History of schizophrenia/bipolar disorder- continue current meds 9. RLS - Restart Ropinirole DVT prophy: Heparin subcutaneous Will continue to PT/OT. Open MRI/MRA Brain scheduled for today. VS,Fishbone, I+O VS, Fishbone, I+O Laboratory Tests 10/17/16 05:36 Red Blood Count 5.08, Mean Corpuscular Volume 88.1, Mean Corpuscular Hemoglobin 28.9, Mean Corpuscular Hemoglobin Concent 32.8, Red Cell Distribution Width 14.1 , Neutrophils (%) (Auto) 73.7 H, Lymphocytes (%) (Auto) 18.2 L, Monocytes (%) ( Auto) 5.5 H, Eosinophils (%) (Auto) 1.7, Basophils (%) (Auto) 0.2, Neutrophils # (Auto) 7.2, Lymphocytes # (Auto) 1.9, Monocytes # (Auto) 0.5, Eosinophils # ( Auto) 0.2, Basophils # (Auto) 0.0, Calcium Level 8.8, Aspartate Amino Transf ( AST/SGOT) 15, Alanine Aminotransferase (ALT/SGPT) 38, Alkaline Phosphatase 81, Total Bilirubin 0.6, Total Protein 6.7, Albumin 3.4 Vital Signs Date Time Temp Pulse Resp B/P (MAP) Pulse Ox O2 Delivery O2 Flow Rate FiO2 10/17/16 10:06 18 91 Room Air 10/17/16 08:26 123/76 10/17/16 08:00 98.1 70 I&O- Last 24 Hours up to 6 AM 10/17/16 05:59 Intake Total 2160 ml Output Total 2375 ml Balance -215 ml MATILDE WEISS MD Oct 17, 2016 11:07
--- NOTE | 2016-10-17 17:21 | EEG ---
DATE OF PROCEDURE: 10/16/2016 EEG NUMBER: [id number] REASON FOR EEG: Headaches and zoning out spells. HISTORY: The patient is a 40-year-old male who was admitted at [facility] due to severe headaches and had an episode of zoning out. He is currently on zonisamide, Fioricet, tizanidine, etc. This EEG was done to rule out epileptic potential. TECHNICAL DESCRIPTION: This digital EEG was recorded by 21 scalp, ear and two EKG electrodes and was reviewed in bipolar and referential montages following reformatting in 10-20 international electrode placement system. INTERPRETATION: The patient was noted to be in awake and drowsy states during this EEG. Resting awake background rhythm consisted of well-formed posterior dominant rhythm with anterior/posterior gradient comprising of 10 Hz alpha activity measuring 15-40 microvolts in amplitude. Attenuation of posterior dominant rhythm was seen during transition into drowsiness. Anteriorly low voltage and mixed frequency activity was noted. Stage I and II sleep were reviewed and were symmetric bilaterally. Hyperventilation elicited mild theta slowing of background rhythm. Photic stimulation remained unremarkable. EKG revealed normal sinus rhythm. No focal, lateralizing or epileptiform abnormalities were seen. No clinical or electrographic seizures were recorded. CONCLUSION: This EEG in awake, drowsy is within normal limits. MTDD
[2016-10-17] MEDS: predniSONE 10 MG TAB PO SCH (17:26)
[2016-10-17] MEDS: IBUPROFEN 600 MG TAB PO PRN (17:32)
[2016-10-17] MEDS: ZONISAMIDE 100 MG CAP (ZONEGRAN) PO SCH (20:03)
[2016-10-17] MEDS: SIMVASTATIN 40 MG TAB PO SCH (20:03)
[2016-10-17] MEDS: LURASIDONE HCL 40 MG TAB (LATUDA) PO SCH (20:03)
[2016-10-17] MEDS ORDERED: rOPINIRole 1MG TAB PO SCH (21:00)
[2016-10-18] VITALS (9 sets, daily range): BP systolic 112–116; BP diastolic 60–67; O2SAT 96–98
[2016-10-18] MEDS: ACETAMINOPHEN TAB 650MG DOSE (2X325MG) PO PRN (05:16)
[2016-10-18] MEDS: LEVOTHYROXINE 137MCG TABLET (0.137MG) PO SCH (05:16)
[2016-10-18] MEDS: SLF 3 ML SYR IV SCH (05:16)
[2016-10-18] MEDS: HEPARIN SOD (PORCINE) 5000 UNITS/ML VIAL SC SCH (05:16)
[2016-10-18 05:46] LABS: BASO # 0.1 K/mm3 (0.0-0.2); BASO % 0.7 % (0.0-1.0); EOS # 0.2 K/mm3 (0.0-0.50); EOS % 1.7 % (0.0-3.0); LARGE UNSTAINED CELL # 0.1 K/mm3 (0.0-0.4); LYMPH # 2.2 K/mm3 (1.5-4.5); LYMPH % 21.2 % (24.0-44.0); MEAN CORPUSCULAR HEMOGLOBIN 29.3 pg (27.0-33.0); MEAN CORPUSCULAR HGB CONC 32.6 g/dl (32.0-36.5); MEAN CORPUSCULAR VOLUME 89.8 fl (80.0-96.0); MONO # 0.5 K/mm3 (0.0-0.8); NEUTROPHILS # 6.9 K/mm3 (1.8-7.7); NEUTROPHILS % 70.4 % (36.0-66.0); PLATELET COUNT, AUTOMATED 173 k/mm3 (150-450); RED CELL DISTRIBUTION WIDTH 14.2 % (11.5-14.5); WHITE BLOOD COUNT 9.8 K/mm3 (4.0-10.0)
[2016-10-18 06:01] LABS: ALBUMIN 3.4 GM/DL (3.2-5.2); ALBUMIN/GLOBULIN RATIO 1.06 (1.00-1.93); ALKALINE PHOSPHATASE 77 U/L (45-117); ALT/SGPT 37 U/L (12-78); ANION GAP 8 MEQ/L (8-16); AST/SGOT 14 U/L (15-37); BILIRUBIN,TOTAL 0.5 MG/DL (0.2-1.0); BLOOD UREA NITROGEN 16 MG/DL (7-18); CALCIUM LEVEL 9.2 MG/DL (8.5-10.1); CARBON DIOXIDE LEVEL 23 MEQ/L (21-32); CHLORIDE LEVEL 106 MEQ/L (98-107); CREATININE FOR GFR 0.96 MG/DL (0.70-1.30); GLOMERULAR FILTRATION RATE > 60.0 (>60); GLUCOSE, FASTING 78 MG/DL (70-105); MAGNESIUM LEVEL 2.5 MG/DL (1.8-2.4); POTASSIUM SERUM 4.1 MEQ/L (3.5-5.1); SODIUM LEVEL 137 MEQ/L (136-145); TOTAL PROTEIN 6.6 GM/DL (6.4-8.2)
[2016-10-18] MEDS ORDERED: rOPINIRole 0.25 MG TAB(REQUIP) PO SCH (09:00)
[2016-10-18] MEDS: SERTRALINE HCL 50 MG TAB PO SCH (09:22)
[2016-10-18] MEDS: FAMOTIDINE 20 MG TAB PO SCH (09:22)
[2016-10-18] MEDS: FUROSEMIDE 20 MG TAB PO SCH (09:22)
[2016-10-18] MEDS: LOSARTAN 25 MG TAB PO SCH (09:23)
[2016-10-18] MEDS: IBUPROFEN 600 MG TAB PO PRN (09:23)
[2016-10-18] MEDS: ASPIRIN 81 MG ENTERIC TAB PO SCH (09:23)
[2016-10-18] MEDS: PANTOPRAZOLE 40MG TAB (PROTONIX) PO SCH (09:23)
[2016-10-18] MEDS: VITAMIN D 1,000 INTERNATIONAL UNITS TABLET PO SCH (09:23)
[2016-10-18] MEDS: POTASSIUM CHLORIDE 10 MEQ SR TABLET PO SCH (09:24)
[2016-10-18] MEDS: predniSONE 10 MG TAB PO SCH (09:24)
[2016-10-18] MEDS ORDERED: ZONE1CAP PO (11:38)
--- NOTE | 2016-10-18 14:05 | DS.PDOC ---
Discharge Summary General Date of Admission Oct 11, 2016 at 20:32 Date of Discharge 10/18/16 Attending Physician: MATILDE WEISS MD Specialist/Consultants Involve: Doroteo Baum MD Specialist/Consultants Involve Dr. TYLER Discharge Summary PROCEDURES PERFORMED DURING STAY: None. ADMITTING/DISCHARGE DIAGNOSES: 1. Intractable migraines 2. Leukocytosis 3. History of schizophrenia/bipolar disorder 4. History of depression 5. Hypertension 6. GERD 7. Restless leg syndrome COMPLICATIONS/CHIEF COMPLAINT: Intractable Migraine. HISTORY OF PRESENT ILLNESS/HOSPITAL COURSE: This is a 40-year-old male with past medical history of schizophrenia/bipolar disorder, hypertension, hyperlipidemia who also has a history of migraines over the past year presents with intractable migraine. [facility] strokelike [facility] with MRI of the brain negative despite persistent symptoms. Patient was discharged as to follow-up with his neurologist. Patient presents here with similar symptoms and has had an extensive workup. The patient has a negative CAT scan of the head, EEG was negative, ophthalmology has evaluated the patient with no papilledema noted, neurology has tried multiple medications to help control his migraines, and pain management has also evaluated the patient. There was a delay in MRI as the patient needed an open MRI given his morbid obesity. The patient's symptoms have now resolved and the patient's has back to his baseline strength. The patient has also participated with physical therapy and occupational therapy and is clear the patient for discharge. Patient will need to follow-up with his neurologist for a referral to the headache specialist. Patient will need to return to the ED if symptoms worsen. I have discussed the above with the patient as well as the mother, who agree with the current plan. DISCHARGE MEDICATIONS: Please see below. ALLERGIES: Please see below. PHYSICAL EXAMINATION ON DISCHARGE: Vitals: (see below) General: No acute distress, laying comfortably in bed. HEENT: Moist mucous membranes. Neck: No JVD or lymphadenopathy Cardiac: RRR, No murmurs Pulm: Clear to auscultation b/l. No wheezing, rhonchi Abd: NT/ND + BS Ext: No edema or cyanosis Neuro: Strength: 5 RUE/RLE. 5/5 strength LLE/LUE. CN 2-12 intact. F to N intact Negative Babinki. DTR 2+ throughout. LABORATORY DATA: Please see below. IMAGING: CTA head and neck on 10/14/[address] head on 10/15/16- no acute intracranial pathology MRI brain on 10/17/16 with chronic small vessel ischemic changes, no acute infarct. MRA of the brain 10/17/16 within normal limits EEG negative for seizure activity PROGNOSIS: Fair ACTIVITY: As tolerated. DIET: Low-sodium DISCHARGE HEIDY/DISPOSITION: Discharged home with home care. DISCHARGE INSTRUCTIONS: 1. Follow-up with PCP and neurology in one week. Neurologists will refer the patient to a headache specialist. Return to the ED if symptoms worsen. DISCHARGE CONDITION: Stable. TIME SPENT ON DISCHARGE: Greater than 30 minutes. Vital Signs/I&Os Vital Signs Date Time Temp Pulse Resp B/P (MAP) Pulse Ox O2 Delivery O2 Flow Rate FiO2 10/18/16 09:23 116/62 10/18/16 08:00 98.2 58 20 95 Room Air I&O- Last 24 Hours up to 6 AM 10/18/16 06:00 Intake Total 1820 ml Output Total 1450 ml Balance 370 ml Laboratory Data Labs 24H Laboratory Tests 2 10/18/16 05:30: White Blood Count 9.8, Red Blood Count 5.13, Hemoglobin 15.0, Hematocrit 46.1, Mean Corpuscular Volume 89.8, Mean Corpuscular Hemoglobin 29.3, Mean Corpuscular Hemoglobin Concent 32.6, Red Cell Distribution Width 14.2, Platelet Count 173, Neutrophils (%) (Auto) 70.4H, Lymphocytes (%) (Auto) 21.2L, Monocytes (%) (Auto) 5.0, Eosinophils (%) (Auto) 1.7, Basophils (%) (Auto) 0.7, Neutrophils # (Auto) 6.9, Lymphocytes # (Auto) 2.2, Monocytes # (Auto) 0.5, Eosinophils # (Auto) 0.2, Basophils # (Auto) 0.1, Large Unclassified Cells % 1.0 , Large Unclassified Cells # 0.1, Anion Gap 8, Glomerular Filtration Rate > 60.0 , Blood Urea Nitrogen 16, Creatinine 0.96, Sodium Level 137, Potassium Level 4.1 , Chloride Level 106, Carbon Dioxide Level 23, Calcium Level 9.2, Aspartate Amino Transf (AST/SGOT) 14L, Alanine Aminotransferase (ALT/SGPT) 37, Alkaline Phosphatase 77, Total Bilirubin 0.5, Total Protein 6.6, Albumin 3.4, Magnesium Level 2.5H, Albumin/Globulin Ratio 1.06 CBC/BMP Laboratory Tests 10/18/16 05:30 Red Blood Count 5.13, Mean Corpuscular Volume 89.8, Mean Corpuscular Hemoglobin 29.3, Mean Corpuscular Hemoglobin Concent 32.6, Red Cell Distribution Width 14.2 , Neutrophils (%) (Auto) 70.4 H, Lymphocytes (%) (Auto) 21.2 L, Monocytes (%) ( Auto) 5.0, Eosinophils (%) (Auto) 1.7, Basophils (%) (Auto) 0.7, Neutrophils # ( Auto) 6.9, Lymphocytes # (Auto) 2.2, Monocytes # (Auto) 0.5, Eosinophils # (Auto ) 0.2, Basophils # (Auto) 0.1, Calcium Level 9.2, Aspartate Amino Transf (AST/ SGOT) 14 L, Alanine Aminotransferase (ALT/SGPT) 37, Alkaline Phosphatase 77, Total Bilirubin 0.5, Total Protein 6.6, Albumin 3.4 Discharge Medications Scheduled Aspirin (Aspirin 81) 81 Mg Tab, 81 MG PO DAILY, (Reported) Botulinum Toxin Type A (Botox) Unknown Strength Soln, Unknown Dose IM Q3M, ( Reported) Cholecalciferol (Vitamin D3) 1,000 Unit Tab, 1,000 UNIT PO DAILY, (Reported) Famotidine (Famotidine) 20 Mg Tab, 20 MG PO DAILY, (Reported) Furosemide (Furosemide) 20 Mg Tab, 20 MG PO BID, (Reported) Hydroxychloroquine Sulfate (Hydroxychloroquine Sulfat) 200 Mg Tab, 200 MG PO BID , (Reported) Levothyroxine Sodium (Synthroid) 137 Mcg Tab, 137 MCG PO QAM, (Reported) Losartan Potassium (Losartan Potassium) 25 Mg Tab, 25 MG PO DAILY, (Reported) Lurasidone Hydrochloride (Latuda) 40 Mg Tab, 40 MG PO QHS, (Reported) Magnesium Oxide (Magnesium Oxide) 400 Mg Tab, 400 MG PO DAILY, (Reported) Metoprolol Succinate (Metoprolol Succinate ER) 50 Mg Tab, 50 MG PO QHS, ( Reported) Pantoprazole Sodium Sesquihydr (Protonix) 40 Mg Tab, 40 MG PO BID, (Reported) Potassium Chloride (K-Tab) 10 Meq Tab, 10 MEQ PO DAILY, (Reported) Prednisone (Prednisone) 5 Mg Tab, 10 MG PO BID, (Reported) Ropinirole Hydrochloride (Ropinirole HCl) 1 Mg Tab, 1 MG PO QHS, (Reported) Ropinirole Hydrochloride (Ropinirole HCl) 1 Mg Tab, 0.5 MG PO DAILY, (Reported) Sertraline Hcl (Sertraline HCl) 50 Mg Tab, 50 MG PO DAILY, (Reported) Simvastatin - High Dose (Zocor) 40 Mg Tab, 40 MG PO QHS, (Reported) Tramadol HCl (Tramadol HCl) 50 Mg Tab, 50 MG PO Q12H, (Reported) Trazodone HCl (Trazodone HCl) 50 Mg Tab, 150 MG PO QHS, (Reported) Zonisamide (Zonegran) 100 Mg Cap, 300 MG PO QHS Scheduled PRN (Butalbital/Acetaminophen/ 50-325-40 mg) 1 Tab Tab, 1 TAB PO PRN PRN for MIGRAINE, (Reported) Allergies Coded Allergies: Oxycodone (Verified Allergy, Severe, 10/10/16) SOB Dihydroergotamine (Verified Allergy, Unknown, 10/11/16) Promethazine (Verified Allergy, Unknown, 10/10/16) restless legs Topiramate (Verified Allergy, Unknown, 10/10/16) numbness and tingling Propoxyphene (Verified Adverse Reaction, Intermediate, HALLUCINATIONS, 07/08) Hydrocodone (Verified Adverse Reaction, Unknown, 10/10/16) lethatgy and confusion MATILDE WEISS MD Oct 18, 2016 14:05
== END 2016-10-18 14:13 | disposition home health service (06) | DRG 54 ==
LOC: M ED 13:25 → M MSPAV 20:32 → OBSVTOIN 20:32 → M MSPAV 20:32 → M ED 10-12 06:06 → M MSPAV 10-12 07:49 → M ED 10-12 07:49 → M PCU 10-13 08:52 → INTOOBSV 10-13 16:01 → OBSVTOIN 10-13 16:01
PROVIDERS: ADMIT Internal Medicine; ATTEND Internal Medicine
DX: G43.419 Hemiplegic migraine, intractable, without status migrainosus (principal); Z68.42 Body mass index [BMI] 45.0-49.9, adult; I10 Essential (primary) hypertension; E66.01 Morbid (severe) obesity due to excess calories; E55.9 Vitamin D deficiency, unspecified; K21.9 Gastro-esophageal reflux disease without esophagitis; F31.9 Bipolar disorder, unspecified; R11.0 Nausea; E78.5 Hyperlipidemia, unspecified; R41.82 Altered mental status, unspecified; G25.81 Restless legs syndrome; Z79.82 Long term (current) use of aspirin; Z79.52 Long term (current) use of systemic steroids; Z88.5 Allergy status to narcotic agent; Z88.8 Allergy status to other drugs, medicaments and biological substances; Z79.899 Other long term (current) drug therapy

== ENCOUNTER → 2016-10-17 | Outpatient (CLI) | payer BC ==
[~2016-10-17] MED LIST changes: +ASPI1TAB PO; +BUTA-198 PO; +FAMO1TAB11 PO; +HYDR200T3 PO; -HYDROXYCHLOROQUINE 200 MG TAB PO SCH; +K-TA10TA2 PO; +LATU40TA PO; +LOSA25TA8 PO; -LURASIDONE HCL 40 MG TAB (LATUDA) PO SCH; +MAG400TA PO; +METO1TAB7 PO; -METOPROLOL SUCC (TopROL XL) 50MG **XL** TAB PO SCH; -PANTOPRAZOLE 40MG TAB (PROTONIX) PO SCH; +PRED5TA PO; +PROT1TAB2 PO; +ROPI1TAB PO; +SERT50TA PO; +SYNT137T7 PO; +TRAM50TA2 PO; +TRAZ50TA11 PO; +VERA40TA PO; +VITA-122 PO; +ZOCO40TA PO; +ZONE1CAP PO; +ZONI100C2 PO
--- NOTE | 2016-10-17 13:53 | REP ---
MRA BRAIN WITHOUT CONTRAST: HISTORY: Infarction. 3D [id number] MR angiography was performed at the level of the [place]. COMPARISON: CT ANGIO head 10/14/2016 There is no aneurysm, arteriovenous malformation or atherosclerotic lesion. The major intracranial vessels are patent. The left vertebral artery is dominant. IMPRESSION: Normal MRA brain. Signed by Power Santoyo MD 10/17/2016 02:03 P
--- NOTE | 2016-10-17 14:01 | REP ---
MR BRAIN WITHOUT CONTRAST: HISTORY: Infarction. COMPARISON: 02/15/2016. Several punctate areas of increased signal intensity on T2-weighted images are present in the subcortical white matter. These represent small vessel ischemic disease. A punctate focus of decreased signal intensity on T2 gradient echo images is present in the right cerebellum. This represents hemosiderin secondary to chronic microhemorrhage. There is no acute intraparenchymal hemorrhage, infarct, mass or midline shift. The ventricular system is normal in appearance. There is no extracerebral collection. The sinuses are clear. IMPRESSION: Minimal small vessel ischemic disease. Signed by Power Santoyo MD 10/17/2016 02:03 P
== END ==
LOC: M RAD 12:44
PROVIDERS: ATTEND Internal Medicine
DX: G98.8 Other disorders of nervous system (principal); I67.82 Cerebral ischemia

== ENCOUNTER → 2016-12-16 | Outpatient (REF) | payer BC | LOC: M LABDRAW1 10:57 | PROVIDERS: ATTEND Internal Medicine Endocrinology, Diabetes & Metabolism | DX: D44.0 Neoplasm of uncertain behavior of thyroid gland (principal) ==

== ENCOUNTER → 2020-11-13 | Outpatient (CLI) | payer BC ==
[~2020-11-13] MED LIST changes: -/ESOM40CA PO; -ASPI1TAB PO; +ASPI81TA26 PO; +CYMB1CAP4 OR; -DULO20CA OR; +FLOM0.4C39; -FLOM5CAP; +LOSA25TA14; +LOSA25TA14 PO; -LOSA25TA8; -LOSA25TA8 PO; -MAG400TA PO; -MAGN1TAB25 PO; +MAGN1TAB26 PO; +MAGN400T35 PO; +NEXI1CAP3 PO; +OXYC1TAB23 PO; -PANT40TA2; +PANT40TA29; -PERCOCET PO; -ROPI1TAB; -ROPI1TAB PO; +ROPI1TAB3; +ROPI1TAB3 PO; +SERT-141 PO; -SERT50TA PO; +TRAZ-252; +TRAZ-252 PO; -TRAZ50TA11; -TRAZ50TA11 PO; +ZONI100C17; +ZONI100C17 PO; -ZONI100C2; -ZONI100C2 PO
--- NOTE | 2020-11-13 14:34 | DEXAMM ---
INDICATION: SYSTEMIC LUPUS ERYTHEMATOSUS, UNSPEC SLE TYPE. COMPARISON: None. TECHNIQUE: Bone density was measured using dual-energy x-ray absorptionmetry (DEXA). FINDINGS: AP SPINE L1-L4 BMD 1.4 g/cm2 Young Adult T-Score 1.7 Age Matched Z-Score 1.5. LT FEMUR, TOTAL BMD 1.096 g/cm2 Young Adult T-Score 0.7 Age Matched Z-Score 0.2. RT FEMUR, TOTAL BMD 1.162 g/cm2 Young Adult T-Score 1.2 Age Matched Z-Score 0.7. IMPRESSION: There is normal of the spine. There is normal of the left hip. There is normal of the right hip. FOLLOW-UP: Recommendation for the next bone density exam: 2 years. <Electronically signed by Bridger Little > 11/13/20 [id number]
== END ==
LOC: M WHC 09:42
PROVIDERS: ATTEND Internal Medicine
DX: M32.9 Systemic lupus erythematosus, unspecified (principal)

== ENCOUNTER → 2021-11-28 | Outpatient (REF) | payer BC ==
[~2021-11-28] MED LIST changes: -LATU40TA; -LATU40TA PO; +LATU40TA2; +LATU40TA2 PO; +LOSA25TA13; +LOSA25TA13 PO; -LOSA25TA14; -LOSA25TA14 PO; -ZONI100C17; -ZONI100C17 PO; +ZONI100C67; +ZONI100C67 PO
== END ==
LOC: M SFHCDERM 12:22
PROVIDERS: ATTEND Nurse Practitioner Family
DX: B36.9 Superficial mycosis, unspecified (principal)

== ENCOUNTER → 2021-12-06 | Outpatient (CLI) | payer BC | LOC: M WUC 11:39 | PROVIDERS: ATTEND Internal Medicine Rheumatology | DX: M32.19 Other organ or system involvement in systemic lupus erythematosus (principal); Z79.899 Other long term (current) drug therapy; L40.50 Arthropathic psoriasis, unspecified; M50.322 Other cervical disc degeneration at C5-C6 level; M50.323 Other cervical disc degeneration at C6-C7 level; M47.817 Spondylosis without myelopathy or radiculopathy, lumbosacral region; M25.78 Osteophyte, vertebrae ==

== ENCOUNTER → 2021-12-06 | Outpatient (REF) | payer BC ==
[2021-12-06 17:34] LABS: BASO % 0.2 % (0.0-1.0); EOS # 0.1 10^3/uL (0.0-0.5); EOS % 0.5 % (0.0-3.0); HEMATOCRIT 47.9 % (42.0-52.0); HEMOGLOBIN 15.3 g/dl (13.5-17.5); LYMPH % 9.8 % (24.0-44.0); MEAN CORPUSCULAR HEMOGLOBIN 28.9 pg (27.0-33.0); MEAN CORPUSCULAR HGB CONC 31.9 g/dl (32.0-36.5); MEAN CORPUSCULAR VOLUME 90.5 fl (80.0-96.0); MONO # 0.7 10^3/uL (0.0-0.8); MONO % 6.7 % (2.0-8.0); NEUTROPHILS # 8.7 10^3/uL (1.5-8.5); NEUTROPHILS % 82.4 % (36.0-66.0); PLATELET COUNT, AUTOMATED 218 10^3/uL (150-450); RED BLOOD COUNT 5.29 10^6/uL (4.30-6.10); TOTAL PROTEIN,RANDOM URINE 10.1 MG/DL (0.0-12.0); WHITE BLOOD COUNT 10.6 10^3/uL (4.0-10.0)
[2021-12-06 17:53] LABS: APPEARANCE, URINE MANUAL CLEAR (CLEAR); COLOR, URINE MANUAL YELLOW (YELLOW)
[2021-12-06 17:55] LABS: BILIRUBIN, URINE MANUAL NEGATIVE (NEGATIVE); BLOOD URINE MANUAL NEGATIVE (NEGATIVE); GLUCOSE, URINE (UA) MANUAL NEGATIVE (NEGATIVE); KETONE, URINE MANUAL NEGATIVE (NEGATIVE); LEUKOCYTE ESTERASE, URINE MAN NEGATIVE (NEGATIVE); NITRITE, URINE MANUAL NEGATIVE (NEGATIVE); PH,URINE MAN 7.5 UNITS (5.0 - 7.0); PROTEIN, URINE MANUAL NEGATIVE (NEGATIVE); UROBILINOGEN, URINE MANUAL NORMAL (NORMAL)
[2021-12-06 18:23] LABS: ALBUMIN 3.8 GM/DL (3.2-5.2); ALT/SGPT 44 U/L (12-78); BILIRUBIN,TOTAL 1.1 MG/DL (0.2-1.0); BLOOD UREA NITROGEN 12 MG/DL (7-18); CALCIUM LEVEL 9.5 MG/DL (8.5-10.1); CARBON DIOXIDE LEVEL 24 MEQ/L (21-32); CHLORIDE LEVEL 102 MEQ/L (98-107); COMPLEMENT C3 157 MG/DL (90-180); COMPLEMENT C4 28 MG/DL (10-40); CREATININE FOR GFR 0.92 MG/DL (0.70-1.30); GLOMERULAR FILTRATION RATE > 60.0 (>60); GLUCOSE, FASTING 75 MG/DL (70-100); LDH LACTATE DEHYDROGENASE 204 U/L (87-241); POTASSIUM SERUM 4.2 MEQ/L (3.5-5.1); SODIUM LEVEL 135 MEQ/L (136-145); TOTAL PROTEIN 6.5 GM/DL (6.4-8.2)
[2021-12-06 19:05] LABS: ERYTHROCYTE SEDIMENTATION RATE 7 mm/hr (0-15)
== END ==
LOC: M SFHCRHEU 12:43
PROVIDERS: ATTEND Internal Medicine Rheumatology
DX: M32.19 Other organ or system involvement in systemic lupus erythematosus (principal); L40.50 Arthropathic psoriasis, unspecified; Z79.899 Other long term (current) drug therapy

== ENCOUNTER → 2022-04-04 | Outpatient (REF) | payer BC ==
[2022-04-04 12:36] LABS: C REACTIVE PROTEIN QUANTITATIV < 0.40 MG/DL (<1.0)
[2022-04-04 12:38] LABS: ALBUMIN 3.3 G/DL (3.2-5.2); ALKALINE PHOSPHATASE 75 U/L (46-116); ALT/SGPT 23 U/L (7.0-40); AST/SGOT 25 U/L (<34); BILIRUBIN,TOTAL 0.4 MG/DL (0.3-1.2); BLOOD UREA NITROGEN 13 MG/DL (9-23); CALCIUM LEVEL 8.7 MG/DL (8.5-10.1); CARBON DIOXIDE LEVEL 26 MMOL/L (20-31); CHLORIDE LEVEL 108 MMOL/L (98-107); COMPLEMENT C3 130.1 MG/DL (90.0-170.0); COMPLEMENT C4 21.7 MG/DL (12-36); CREATININE FOR GFR 0.76 MG/DL (0.70-1.30); GLOMERULAR FILTRATION RATE > 60.0 (>60); GLUCOSE, FASTING 89 MG/DL (60-100); POTASSIUM SERUM 4.1 MMOL/L (3.5-5.1); SODIUM LEVEL 142 MMOL/L (136-145); TOTAL PROTEIN 5.6 G/DL (5.7-8.2)
[2022-04-04 12:41] LABS: BASO % 0.3 % (0.0-1.0); EOS # 0.1 10^3/uL (0.0-0.5); EOS % 1.7 % (0.0-3.0); LYMPH # 1.1 10^3/uL (1.5-5.0); MEAN CORPUSCULAR HEMOGLOBIN 28.6 pg (27.0-33.0); MEAN CORPUSCULAR HGB CONC 31.1 g/dl (32.0-36.5); MONO # 0.6 10^3/uL (0.0-0.8); MONO % 9.3 % (2.0-8.0); NEUTROPHILS # 4.2 10^3/uL (1.5-8.5); NEUTROPHILS % 69.5 % (36.0-66.0); PLATELET COUNT, AUTOMATED 224 10^3/uL (150-450); RED BLOOD COUNT 4.89 10^6/uL (4.30-6.10)
[2022-04-04 12:57] LABS: APPEARANCE, URINE MANUAL CLEAR (CLEAR); COLOR, URINE MANUAL YELLOW (YELLOW)
[2022-04-04 12:58] LABS: BILIRUBIN, URINE MANUAL NEGATIVE (NEGATIVE); GLUCOSE, URINE (UA) MANUAL NEGATIVE (NEGATIVE); KETONE, URINE MANUAL NEGATIVE (NEGATIVE); PH,URINE MAN 5.5 UNITS (5.0 - 7.0); PROTEIN, URINE MANUAL TRACE mg/dL (NEGATIVE); SPECIFIC GRAVITY,URINE MANUAL 1.025 (1.002-1.035); UROBILINOGEN, URINE MANUAL NORMAL (NORMAL)
[2022-04-04 12:59] LABS: BLOOD URINE MANUAL NEGATIVE (NEGATIVE); LEUKOCYTE ESTERASE, URINE MAN TRACE (NEGATIVE); NITRITE, URINE MANUAL NEGATIVE (NEGATIVE)
[2022-04-04 13:11] LABS: CREATININE,RANDOM URINE 237.7 MG/DL
[2022-04-04 13:15] LABS: TOTAL PROTEIN,RANDOM URINE 241.6 MG/DL (0.0-14.0)
[2022-04-04 13:27] LABS: ERYTHROCYTE SEDIMENTATION RATE 14 mm/hr (0-15)
[2022-04-04 14:02] LABS: BACTERIA, URINE SMALL AMOUNT; HYALINE CAST, URINE NONE SEEN /lpf (0-1); RBC, URINE 0-1 /hpf (0-3); SQUAMOUS EPITHELIAL CELL URINE SMALL AMOUNT /hpf (SMALL AMT)
[2022-04-04 14:03] LABS: MUCUS, URINE LARGE AMOUNT (NEGATIVE); SPERM, URINE MOD AMOUNT
[2022-04-04 14:04] LABS: AMORPHOUS SEDIMENT, URINE SMALL AMOUNT (NEGATIVE)
== END ==
LOC: M SFHCRHEU 08:53
PROVIDERS: ATTEND Internal Medicine Rheumatology
DX: M32.19 Other organ or system involvement in systemic lupus erythematosus (principal); L40.50 Arthropathic psoriasis, unspecified; R21 Rash and other nonspecific skin eruption; Z79.899 Other long term (current) drug therapy; R76.0 Raised antibody titer

== ENCOUNTER → 2022-04-11 | Outpatient (REF) | payer BC ==
[2022-04-11 12:36] LABS: APPEARANCE, URINE MANUAL CLEAR (CLEAR); COLOR, URINE MANUAL YELLOW (YELLOW)
[2022-04-11 12:38] LABS: BILIRUBIN, URINE MANUAL NEGATIVE (NEGATIVE); BLOOD URINE MANUAL NEGATIVE (NEGATIVE); KETONE, URINE MANUAL NEGATIVE (NEGATIVE); LEUKOCYTE ESTERASE, URINE MAN TRACE (NEGATIVE); NITRITE, URINE MANUAL NEGATIVE (NEGATIVE); PROTEIN, URINE MANUAL NEGATIVE (NEGATIVE); UROBILINOGEN, URINE MANUAL NORMAL (NORMAL)
[2022-04-11 12:51] LABS: TOTAL PROTEIN,RANDOM URINE 19.5 MG/DL (0.0-14.0)
[2022-04-11 12:56] LABS: CREATININE,RANDOM URINE 160.7 MG/DL
[2022-04-11 13:36] LABS: GLUCOSE, URINE (UA) MANUAL NEGATIVE (NEGATIVE)
[2022-04-11 13:37] LABS: BACTERIA, URINE SMALL AMOUNT; HYALINE CAST, URINE NONE SEEN /lpf (0-1); MUCUS, URINE SMALL AMOUNT (NEGATIVE); RBC, URINE 0-1 /hpf (0-3); SQUAMOUS EPITHELIAL CELL URINE SMALL AMOUNT /hpf (SMALL AMT)
== END ==
LOC: M SFHCRHEU 10:26
PROVIDERS: ATTEND Internal Medicine Rheumatology
DX: M32.19 Other organ or system involvement in systemic lupus erythematosus (principal); L40.50 Arthropathic psoriasis, unspecified; R21 Rash and other nonspecific skin eruption; Z79.899 Other long term (current) drug therapy; R76.0 Raised antibody titer

== ENCOUNTER → 2022-04-22 | Outpatient (CLI) | payer BC | LOC: M WUC 10:37 | PROVIDERS: ATTEND Internal Medicine Rheumatology | DX: M32.19 Other organ or system involvement in systemic lupus erythematosus (principal); L40.50 Arthropathic psoriasis, unspecified; R21 Rash and other nonspecific skin eruption; Z79.899 Other long term (current) drug therapy; R76.0 Raised antibody titer ==

== ENCOUNTER → 2022-06-06 | Outpatient (REF) | payer BC ==
[~2022-06-06] MED LIST changes: +SIMV-254 PO; -ZOCO40TA PO
[2022-06-06 13:03] LABS: BASO % 0.5 % (0.0-1.0); EOS # 0.1 10^3/uL (0.0-0.5); EOS % 1.6 % (0.0-3.0); HEMATOCRIT 46.5 % (42.0-52.0); HEMOGLOBIN 14.8 g/dl (13.5-17.5); LYMPH # 1.2 10^3/uL (1.5-5.0); LYMPH % 18.9 % (24.0-44.0); MEAN CORPUSCULAR HEMOGLOBIN 28.8 pg (27.0-33.0); MEAN CORPUSCULAR HGB CONC 31.8 g/dl (32.0-36.5); MEAN CORPUSCULAR VOLUME 90.5 fl (80.0-96.0); MONO # 0.6 10^3/uL (0.0-0.8); MONO % 9.4 % (2.0-8.0); NEUTROPHILS # 4.4 10^3/uL (1.5-8.5); NEUTROPHILS % 69.4 % (36.0-66.0); PLATELET COUNT, AUTOMATED 219 10^3/uL (150-450); RED BLOOD COUNT 5.14 10^6/uL (4.30-6.10); WHITE BLOOD COUNT 6.4 10^3/uL (4.0-10.0)
[2022-06-06 13:09] LABS: APPEARANCE, URINE HAZY (CLEAR); BACTERIA, URINE AUTO NEGATIVE (NEGATIVE); BILIRUBIN, URINE AUTO NEGATIVE (NEGATIVE); BLOOD, URINE BLOOD NEGATIVE (NEGATIVE); COLOR, URINE YELLOW (YELLOW); GLUCOSE, URINE (UA) AUTO NEGATIVE (NEGATIVE); KETONE, URINE AUTO TRACE mg/dL (NEGATIVE); LEUKOCYTE ESTERASE, URINE AUTO NEGATIVE (NEGATIVE); MUCUS, URINE SMALL (NEGATIVE); NITRITE, URINE AUTO NEGATIVE (NEGATIVE); PROTEIN, URINE AUTO NEGATIVE (NEGATIVE); RBC, URINE AUTO 0 /HPF (0-3); SPECIFIC GRAVITY URINE AUTO 1.028 (1.002-1.035); SQUAMOUS EPITHELIAL CELL UR AU 0 /HPF (0-6); UROBILINOGEN, URINE AUTO 0.2 mg/dL (0.0-2.0); WBC, URINE AUTO 0 /HPF (0-3)
[2022-06-06 13:27] LABS: TOTAL PROTEIN,RANDOM URINE 29.5 MG/DL (0.0-14.0)
[2022-06-06 13:30] LABS: ERYTHROCYTE SEDIMENTATION RATE 20 mm/hr (0-15)
[2022-06-06 13:33] LABS: COMPLEMENT C3 151.4 MG/DL (90.0-170.0)
[2022-06-06 13:36] LABS: ALBUMIN 3.6 G/DL (3.2-5.2); ALKALINE PHOSPHATASE 86 U/L (46-116); ALT/SGPT 32 U/L (7.0-40); AST/SGOT 24 U/L (<34); BILIRUBIN,TOTAL 0.7 MG/DL (0.3-1.2); BLOOD UREA NITROGEN 9 MG/DL (9-23); CARBON DIOXIDE LEVEL 27 MMOL/L (20-31); CHLORIDE LEVEL 103 MMOL/L (98-107); CREATININE FOR GFR 0.76 MG/DL (0.70-1.30); GLOMERULAR FILTRATION RATE > 60.0 (>60); GLUCOSE, FASTING 81 MG/DL (60-100); POTASSIUM SERUM 4.5 MMOL/L (3.5-5.1); SODIUM LEVEL 139 MMOL/L (136-145); TOTAL PROTEIN 6.1 G/DL (5.7-8.2)
[2022-06-06 13:51] LABS: HEPATITIS B SURFACE ANTIGEN NEGATIVE (NEGATIVE)
[2022-06-06 14:11] LABS: HEPATITIS B CORE ANTIBODY IGM NEGATIVE (NEGATIVE)
[2022-06-06 14:12] LABS: HEPATITIS C VIRUS ABY INDEX < 0.0 INDEX (<0.8)
== END ==
LOC: M SFHCRHEU 10:34
PROVIDERS: ATTEND Internal Medicine Rheumatology
DX: M32.19 Other organ or system involvement in systemic lupus erythematosus (principal); L40.50 Arthropathic psoriasis, unspecified; R21 Rash and other nonspecific skin eruption; Z79.899 Other long term (current) drug therapy; R76.0 Raised antibody titer; R80.8 Other proteinuria

== ENCOUNTER → 2022-07-18 | Outpatient (CLI) | payer BC | LOC: M PLARAD 14:52 | PROVIDERS: ATTEND Internal Medicine Rheumatology | DX: M32.19 Other organ or system involvement in systemic lupus erythematosus (principal); L40.50 Arthropathic psoriasis, unspecified; R21 Rash and other nonspecific skin eruption; Z79.899 Other long term (current) drug therapy; R76.0 Raised antibody titer; R80.8 Other proteinuria ==